=== PATIENT | female | born 1955 | race Caucasian/White ===

== ENCOUNTER → 2017-07-21 12:18 | Outpatient (CLI) | payer BC, SELFPAY ==
[2017-07-21 14:08] LABS: Alanine Aminotransferase 18 U/L (12-78); Albumin Level 4.1 gm/dL (3.4-5.0); Albumin/Globulin Ratio 1.2 (1.1-1.8); Alkaline Phosphatase 82 U/L (46-116); Anion Gap 12.9 mEq/L (5-15); Aspartate Amino Transferase 26 U/L (15-37); Bilirubin,Total 0.3 mg/dL (0.2-1.0); Blood Urea Nitrogen 9 mg/dL (7-18); Calcium 9.8 mg/dL (8.5-10.1); Carbon Dioxide 28 mmol/L (21.0-32.0); Chloride 104 mmol/L (98-107); Creatinine,Serum 0.93 mg/dL (0.55-1.02); Estimated Glomerular Filt Rate 61 ml/min (>60); GFR (African American) 73 ML/MIN (>60); Globulin 3.4 gm/dl (1.3-3.2); Glucose 98 mg/dL (74-106); Potassium 4.9 mmoL/L (3.5-5.1); Sodium 140 mmol/L (136-145); Total Protein,Serum 7.5 gm/dL (6.4-8.2)
[2017-07-22 11:04] LABS: Folate 9.8 ng/mL (>3.0); Vitamin B12 >2000 pg/mL (232-1245); Vitamin D 25 Hydroxy 37.1 ng/mL (30.0-100.0)
[2017-07-26 06:02] LABS: Vitamin B6 6.3 ug/L (2.0-32.8)
== END ==
PROVIDERS: Visit Provider Psychiatry & Neurology Neurology
DX: G62.9 Polyneuropathy, unspecified (principal); I99.8 Other disorder of circulatory system; E53.8 Deficiency of other specified B group vitamins; E55.9 Vitamin D deficiency, unspecified
CPT/HCPCS: 36415; 80053; 82607; 82652; 82746; 84207

== ENCOUNTER → 2017-07-25 11:51 | Outpatient (CLI) | payer BC, SELFPAY ==
[2017-07-29 12:45] LABS: Calcium, Ionized 5.2 mg/dL (4.5-5.6)
== END ==
PROVIDERS: Visit Provider Psychiatry & Neurology Neurology
DX: G62.9 Polyneuropathy, unspecified (principal); E55.9 Vitamin D deficiency, unspecified
CPT/HCPCS: 36415; 82330

== ENCOUNTER → 2018-02-02 15:58 | Outpatient (CLI) | payer BC, SELFPAY ==
--- NOTE | 2018-02-02 16:02 | MM_ITS ---
MM Dig screening mamm BI w/CAD CAD Screening COMPARISON: Digital mammograms with CAD 01/24/2017 and 01/20/2016 INDICATION: There is a history of breast cancer in patient's maternal cousin diagnosed after menopause. TECHNIQUE: Standard CC and MLO images were obtained. R2 CAD reviewed. FINDINGS: Moderate diffuse scattered fiber glandular densities are seen throughout both breasts. The findings are bilateral and symmetrical. There is a small nodular density near the axillary tail right breast not deftly seen previously but almost surely representing a low-lying node. There are couple benign-appearing calcifications in each breast. There is no suspicious lesion and there are no suspicious microcalcifications. IMPRESSION: Moderate diffuse breast density with no suspicious lesion seen BI-RADS Category: 2 Benign Finding(s) RECOMMENDED FOLLOW-UP: 1YR - 1 YEAR FOLLOW-UP (A letter has been sent to the patient regarding results of the study.)
== END ==
PROVIDERS: PCP Family Medicine; Visit Provider Family Medicine
DX: Z12.31 Encounter for screening mammogram for malignant neoplasm of breast (principal)
CPT/HCPCS: 77067

== ENCOUNTER → 2018-04-25 13:55 | Outpatient (POV) | payer BC, SELFPAY | PROVIDERS: Visit Provider Dermatology | DX: Z00.00 Encounter for general adult medical examination without abnormal findings (principal) ==

== ENCOUNTER → 2019-02-23 16:03 | Outpatient (CLI) | payer MEDICARE, SELFPAY ==
--- NOTE | 2019-02-23 | MM_ITS ---
PROCEDURE: MM DIG SCREENING MAMM BI W/CAD CLINICAL INDICATION: ROUTINE SCREENING There is a history of breast cancer patient's maternal cousin diagnosed after menopause. COMPARISON: [facility] DIG MAMM-SCREEN NAILA from 01/20/2016 [facility] DIG MAMM-SCREEN NAILA W/CAD from 01/24/2017 [facility] MM Dig screening mamm BI w/CAD from 02/02/2018 TECHNIQUE: Standard CC and MLO images were obtained. R2 CAD reviewed. FINDINGS: Scattered fibroglandular densities are seen throughout both breast. There a benign-appearing calcification in each breast. There is an asymmetric density left breast which was seen previously but shows slightly irregular borders and highlighted by CAD on the CC view.. Recommend the patient return for spot compression views and ultrasound for additional evaluation there are no suspicious microcalcifications. IMPRESSION: Moderate diffuse breast density with possible change in asymmetric density left breast BI-RAD Category: 0 Need Additional Imaging Evaluation FOLLOW-UP: IMM Immediate Follow-up Recommended (A letter has been sent to the patient regarding results of the study.) Dictated by: Dr. Kartik Fernandes MD 02/25/2019 19:[address] Kartik Fernandes MD in [place] 02/25/2019 19:17
== END ==
PROVIDERS: PCP Nurse Practitioner; Visit Provider Nurse Practitioner
DX: Z12.31 Encounter for screening mammogram for malignant neoplasm of breast (principal)
CPT/HCPCS: 77067

== ENCOUNTER → 2019-03-15 14:52 | Outpatient (CLI) | payer MEDICARE, SELFPAY ==
--- NOTE | 2019-03-15 14:54 | MM_ITS ---
PROCEDURE: MM DIG MAMM DX UNILAT LT CAD CLINICAL INDICATION: ABNORMAL MAMM, LT BREAST NODULE COMPARISON: [facility] DIG MAMM-SCREEN NAILA W/CAD from 01/24/2017 [facility] MM Dig screening mamm BI w/CAD from 02/02/2018 MM DIG SCREENING MAMM BI W/CAD from 02/23/2019 TECHNIQUE: Compression MLO and CC views were obtained. FINDINGS: The possible asymmetric density seen on the previous study 02/23/2019 upper inner quadrant appears to press out on the additional spot compression views on the current study. Again noted is diffuse fibroglandular densities throughout the breast. This suggests that the previous image was a summation shadow. Recommended patient continue with yearly screening IMPRESSION: Essentially negative problem solving views BI-RAD Category: 1 Negative FOLLOW-UP: 1YR 1 Year Follow-up (A letter has been sent to the patient regarding results of the study.) Dictated by: Dr. Kartik Fernandes MD 03/22/2019 08:[address] Kartik Fernandes MD in [place] 03/22/2019 08:25
--- NOTE | 2019-03-15 15:18 | US_ITS ---
PROCEDURE: US BREAST LT COMPLETE CLINICAL INDICATION: Abnormal mammogram COMPARISON: MM DIG SCREENING MAMM BI W/CAD from 02/23/2019 MM DIG MAMM DX UNILAT LT CAD from 03/15/2019 FINDINGS: Ultrasound performed of the left breast shows no solid or cystic abnormalities. No abnormalities evident that would correspond to the area of concern on the screening mammogram. IMPRESSION: Negative left breast ultrasound. BI-RADS category 1: Negative Follow-up mammogram recommended in 1 year Dictated by: Ciaran Poon MD 03/22/2019 11:34 Electronically signed by Ciaran Poon MD in [place] 03/22/2019 11:34
== END ==
PROVIDERS: PCP Nurse Practitioner; Visit Provider Nurse Practitioner
DX: R92.8 Other abnormal and inconclusive findings on diagnostic imaging of breast (principal)
CPT/HCPCS: 76641; 77065

== ENCOUNTER → 2019-08-17 07:44 | Outpatient (CLI) | payer MEDICARE, SELFPAY ==
--- NOTE | 2019-08-17 07:45 | CA_ITS ---
APPROVED REPORT General Freight Agent: Francesca Mckinney RVT Laterality: Bilateral Study Quality: Good Indications: left carotid bruit Risk Factors Hyperlipidemia Smoking Doppler Spectral Velocity Analysis ECA (R) 96.90/10.30 cm/s ECA (L) 75.90/6.30 cm/s dICA (R) 113.20/35.20 cm/s dICA (L) 81.80/28.40 cm/s Don (R) 98.00/35.90 cm/s Don (L) 65.20/25.70 cm/s pICA (R) 125.00/26.90 cm/s pICA (L) 100.50/23.60 cm/s dCCA (R) 103.40/23.80 cm/s dCCA (L) 96.90/23.50 cm/s pCCA (R) 113.00/26.30 cm/s pCCA (L) 105.00/27.20 cm/s Vert (R) 107.90/25.00 cm/s Vert (L) 43.80/14.10 cm/s ICA/CCA 1.21 ICA/CCA 1.04 Findings Study suggests less than 20% stenosis of the bilateral internal cartoid arteries. Antegrade flow seen bilateral vertebral arteries. Conclusion No increased velocities to suggest hemodynamically significant stenosis in either internal carotid artery. Electronically signed by : Ciaran Poon MD 08/17/2019 14:41:14
== END ==
PROVIDERS: PCP Nurse Practitioner; Visit Provider Internal Medicine Cardiovascular Disease
DX: R09.89 Other specified symptoms and signs involving the circulatory and respiratory systems (principal)
CPT/HCPCS: 93880

== ENCOUNTER → 2019-08-17 08:07 | Outpatient (CLI) | payer SELFPAY ==
--- NOTE | 2019-08-17 08:08 | CT_ITS ---
PROCEDURE: CT HEART W CALCIUM SCORE CLINICAL HISTORY: eval for cad COMPARISON: No exams were available for comparison TECHNIQUE: Axial images obtained with sagittal and coronal reformats. All CT scans at the facility use one or more dose reduction, viz: automated exposure control, ma/kV adjustment per patient size (including targeted exams where dose is matched to indication, i.e. head), or iterative reconstruction technique. FINDINGS: Coronary artery calcium score is 45 indicating mild plaque burden with moderate cardiovascular disease risk. Incidental note is made of a small hiatal hernia. There are mild atelectatic or fibrotic changes in the left lung base and right middle lobe IMPRESSION: Mild plaque burden with moderate cardiovascular disease risk Dictated by: Ciaran Poon MD 08/17/2019 14:25 Electronically signed by Ciaran Poon MD in [place] 08/17/2019 14:25
== END ==
PROVIDERS: PCP Nurse Practitioner; Visit Provider Internal Medicine Cardiovascular Disease
DX: Z13.6 Encounter for screening for cardiovascular disorders (principal); I34.0 Nonrheumatic mitral (valve) insufficiency; E78.5 Hyperlipidemia, unspecified; Z91.89 Other specified personal risk factors, not elsewhere classified
CPT/HCPCS: 75571

== ENCOUNTER → 2019-11-26 12:14 | Outpatient (CLI) | payer MEDICARE, SELFPAY ==
[2019-11-26 13:02] LABS: Alanine Aminotransferase 18 U/L (12-78); Albumin Level 4.2 g/dl (3.5-5.0); Alkaline Phosphatase 87 U/L (38-126); Aspartate Amino Transferase 42 U/L (14-36); Bilirubin,Direct 0.2 mg/dl (0.0-0.4); Bilirubin,Indirect 0.2 mg/dL (0.0-0.9); Bilirubin,Total 0.4 mg/dl (0.2-1.3); Bilirubin,Unconjugated 0.3 mg/dL (0.0-1.1); Chol/HDL Ratio 2.1 (1-3.5); Cholesterol 144 mg/dl (140-200); HDL Cholesterol 68 mg/dl (40-60); Total Protein,Serum 6.9 g/dl (6.3-8.2); Triglycerides 181 mg/dl (30-150); VLDL Cholesterol 36 mg/dL (0-40)
[2019-11-26 13:15] LABS: Direct LDL Cholesterol 60.29 mg/dL (100-129)
== END ==
PROVIDERS: Visit Provider Internal Medicine
DX: E78.5 Hyperlipidemia, unspecified (principal)
CPT/HCPCS: 36415; 80061; 80076

== ENCOUNTER → 2019-12-12 09:58 | Outpatient (CLI) | payer MEDICARE, SELFPAY ==
--- NOTE | 2019-12-12 10:01 | US_ITS ---
PROCEDURE: MM DIG MAMM DX UNILAT RT CAD Digital Breast Tomosynthesis Included CLINICAL INDICATION: RIGHT BREAST PAIN COMPARISON: MG [facility]B DIG MAMM-SCREEN NAILA W/CAD from 01/24/2017 [facility] MM Dig screening mamm BI w/CAD from 02/02/2018 MG MM DIG SCREENING MAMM BI W/CAD from 02/23/2019 MG MM DIG MAMM DX UNILAT LT CAD from 03/15/2019 US US BREAST RT COMPLETE from 12/12/2019 TECHNIQUE: Standard images performed along with spot compression views and right breast ultrasound. Tomography also performed FINDINGS: Average fibroglandular tissue. There is an 8 mm nodular opacity in the inferior aspect of the right breast as seen on the tomograms but not redo duplicated on the spot views. There is an area of asymmetry in the central aspect of the right breast which is stable triangular-shaped measuring 6 mm. No malignant appearing microcalcifications. Right breast ultrasound: In the 6 o'clock region of the right breast corresponding to the area of patient's reported pain, there is a 9 mm lobulated nodule fairly well-circumscribed. This is hypoechoic but shows decreased through transmission of sound. The nodule is wider than tall. IMPRESSION: Suspicious nodule at 6 o'clock seen on the ultrasound possibly corresponding to the area of asymmetric density on the mammogram. Suggest ultrasound-guided aspiration. If this does not represent a cyst complex cyst then, mammotome biopsy or core biopsy could be performed at the same time. BI-RAD Category: 4 Suspicious Abnormality - Biopsy Considered FOLLOW-UP: BIO Biopsy Recommended (A letter has been sent to the patient regarding results of the study.) Dictated by: Ciaran Poon MD 12/17/2019 09:39 Ciaran Poon MD in [place] 12/17/2019 09:39
== END ==
PROVIDERS: PCP Nurse Practitioner; Visit Provider Nurse Practitioner
DX: N64.4 Mastodynia (principal)
CPT/HCPCS: 76641; 77061; 77065; G0279

== ENCOUNTER 2020-01-07 10:01 | Emergency (ER) | payer MEDICARE, SELFPAY ==
--- NOTE | 2020-01-07 10:08 | PC.NURSE ---
Lab notified of need for covid test, requested that more test be sent down
[2020-01-07 10:31] VITALS: BP 143/74; PULSE 77; RESP 20; TEMP 36.6; O2SAT 97; BMI 26.9
--- NOTE | 2020-01-07 10:33 | HMH.EDUTC ---
[facility] [place] Impression: Exposure to COVID-19 virus Disposition: Home, Self-Care Condition on Discharge: Good Instructions: Preventing the Spread of Coronavirus Discharge Instructions Additional Instructions: Drink plenty of fluids. Take tylenol or ibuprofen for pain or fever. Follow up with your regular doctor. GO TO THE ER FOR ANY WORSENING SYMPTOMS FOLLOW THE DIRECTIONS ON THE COVID-19 HAND OUT THAT WE GAVE YOU REGARDING SELF-ISOLATION UNTIL YOU KNOW YOUR COVID-19 RESULTS Prescriptions: Ondansetron [Zofran 4mg ODT] 4 mg PO Q8HP PRN #20 tab.rapdis PRN Reason: Nausea Transmission Status: Received by [facility] Referrals: Sammi Gómez APRN [Primary Care Provider] - Time of Disposition: 10:38 Medical Decision Making - Medical Records Medical records reviewed: No: I reviewed the patient's medical records. - Mark Inquiry Pt receiving controlled substance: No Vital Signs: 01/07/20 10:31 01/07/20 10:47 Temperature 97.9 F 97.9 F Temperature Source Oral Pulse Rate 77 Pulse Rate [Right Brachial] 77 Respiratory Rate 20 20 Blood Pressure 143/74 H Blood Pressure [Right Arm] 143/74 H Blood Pressure Mean [Right Arm] 97 Blood Pressure Source [Right Arm] Automatic Cuff Blood Pressure Position [Right Arm] Sitting 02 Sat by Pulse Oximetry 97 Oxygen Delivery Method Room Air [facility] [place] - General Stated complaint: covid exposure Time Seen by Provider: 01/07/20 10:33 - History of Present Illness Provider Complaint: She reports that she was exposed to Covid by being around some of her family about a week ago. She is having a mild sore throat and nasal congestion, but she thinks that she is having allergy symptoms instead of covid, but she wants to make sure. Onset (ago): hour(s) - Related Data Home Medications Medication Instructions Recorded Confirmed nabumetone 500 mg tablet 500 mg PO BID 06/06/17 08/20/19 cholecalciferol (vitamin D3) 125 5,000 unit PO DAILY cap 08/03/18 08/20/19 mcg (5,000 unit) capsule cyanocobalamin (vitamin B-12) 1,000 mcg PO DAILY tab 08/03/18 08/20/19 1,000 mcg tablet duloxetine 30 mg capsule,delayed 30 mg PO DAILY cap 08/03/18 08/20/19 release gabapentin 100 mg capsule 300 mg PO DIRECTED cap 08/09/19 08/20/19 omeprazole magnesium 20 mg 20 mg PO DAILY 08/09/19 08/20/19 tablet,delayed release Previous Rx's Medication Instructions Recorded aspirin 81 mg tablet,delayed 81 mg PO DAILY #30 tab 08/09/19 release rosuvastatin 20 mg tablet 20 mg PO DAILY #30 tab 09/13/19 Ondansetron [Zofran 4mg ODT] 4 mg PO Q8HP PRN #20 tab.rapdis 01/07/20 Allergies Allergy/AdvReac Type Severity Reaction Status Date / Time No Known Allergies Allergy Verified 09/13/19 11:21 [facility] History - Hepatitis A Screen Attestation statement:: This patient has been screened for Hepatitis A risk factors. 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
--- NOTE | 2020-01-07 10:35 | PC.NURSE ---
LAB AT BEDSIDE
[2020-01-07 10:47] VITALS: BP 143/74; PULSE 77; RESP 20; TEMP 36.6; O2SAT 97
== END 2020-01-07 10:54 | disposition home or self-care (01) ==
PROVIDERS: Emergency Provider Nurse Practitioner Family; PCP Nurse Practitioner
DX: Z20.828 Contact with and (suspected) exposure to other viral communicable diseases (principal); I10 Essential (primary) hypertension; E78.5 Hyperlipidemia, unspecified; K21.9 Gastro-esophageal reflux disease without esophagitis
CPT/HCPCS: G0463; 99201; U0003

== ENCOUNTER → 2020-01-08 12:15 | Outpatient (CLI) | payer MEDICARE, SELFPAY ==
--- NOTE | 2020-01-08 12:22 | US_ITS ---
PROCEDURE: US FNA BREAST CLINICAL INDICATION: ABN USTRASOUND RT BREAST Suspicious right breast nodule COMPARISON: MG MM DIG MAMM DX UNILAT RT CAD from 12/12/2019 US US BREAST RT COMPLETE from 12/12/2019 FINDINGS: Technique: Following obtaining informed consent under aseptic conditions and local anesthesia with 1 percent buffered lidocaine and following time-out procedure, FNA and core biopsy was performed using standard technique. Pre biopsy images once again confirms the suspicious nodule at the 6 o'clock region of the right breast near the nipple. FNA was performed of this nodule but nodule did not aspirate. Therefore, core biopsy was performed. Three cores were obtained with 18 gauge biopsy needle. Potato chance the patient tolerated the procedure well without evidence of immediate complication and left radiology suite in stable condition. Cytology: Negative for malignant cells. Pathology: Non proliferative fibrocystic change with dense stromal fibrosis, negative for malignancy. IMPRESSION: Uneventful ultrasound-guided fine needle aspiration and core biopsy of suspicious right breast nodule. Cytology and pathology was negative for malignancy. Recommend six-month mammographic and sonographic follow-up to confirm stability. Dictated by: Ciaran Poon MD 01/14/2020 08:57 Ciaran Poon MD in [place] 01/14/2020 08:57
== END ==
PROVIDERS: PCP Nurse Practitioner; Visit Provider Family Medicine
DX: R92.8 Other abnormal and inconclusive findings on diagnostic imaging of breast (principal)
CPT/HCPCS: 19083; 10005; 76942; 88173; 88305

== ENCOUNTER → 2020-03-11 11:31 | Outpatient (CLI) | payer MEDICARE, SELFPAY ==
[2020-03-11 13:58] LABS: Coronavirus 19 IgG Antibody Negative (Negative); Coronavirus 19 IgM Antibody Negative (Negative)
== END ==
PROVIDERS: Visit Provider Surgery
DX: Z01.818 Encounter for other preprocedural examination (principal); Z03.818 Encounter for observation for suspected exposure to other biological agents ruled out; Z12.11 Encounter for screening for malignant neoplasm of colon; Z86.010 Personal history of colon polyps
CPT/HCPCS: 36415; 86328

== ENCOUNTER 2020-03-13 08:48 | Day surgery (SDC) | payer MEDICARE, SELFPAY ==
[2020-03-11 13:59] VITALS: BMI 25.7
[2020-03-13 08:58] VITALS: BP 145/67; PULSE 74; RESP 16; TEMP 36.2; O2SAT 97
--- NOTE | 2020-03-13 09:02 | P.PN_ITS ---
[facility] Anesthesia Checklist - Patient Identification Patient Identification: Arm Band, Verbal (Name & ) - Structural Data Admitted From: Home Planned Operative Procedure/s: colon Consent for Planned Operative Procedure(s) Verified: Yes Verified Documents: History and Physical - NPO Status Verified Time NPO: 00:00 - Additional verifications Patient : No Anesthesia Reactions: No Hx Blood Transfusions: No Blood Transfusion Reaction: No Cephalosporin Allergy: No Previous Colonoscopy: Yes - Cardiovascular Assessment Heart Sounds: S1 & S2 Pulse Strength: Baseline Pulse Rhythm: Regular Peripheral Edema: No - Airway Assessment C-Spine Mobility Assessed: Yes TMJ Mobility Assessed: Yes Dentition: Partials - Neurological Assessment Level of Consciousness: Awake, Alert, Appropriate Hx Seizures: No Numbness or tingling in extremities: No - Anesthesia Plan Anesthesia Risk discussed: Yes Anesthesia Plan: Verified ASA Class: III Anesthesia Type: MAC [facility] History I have reviewed the patient's past medical history: Yes Medical History: Reports:: Cancer (breast), Gastroesophageal Reflux Disease(GERD), Hyperlipidemia, Hypertension Denies:: Diabetes Mellitus Type 1, Diabetes Mellitus Type 2, Internal Pacemaker, MRSA, Seizures *Have you ever received a pneumonia vaccine?: Yes *Have you received a flu vaccine this season?: Yes Other Medical History: Reports: Arthritis Anesthesia experience/problems:: none Other Surgeries: Yes: Colonoscopy, Tubal Ligation. 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
[2020-03-13 09:14] VITALS: O2SAT 98
[2020-03-13 10:01] VITALS: BP 107/66; PULSE 70; RESP 18; TEMP 36.2; O2SAT 98
--- NOTE | 2020-03-13 10:05 | HMH.SCOPE ---
- Procedure: Date: 03/13/20 Patient Date of :: 1955 Procedure Performed:: Colonoscopy with polypectomy Indications:: History of colon polyps Performing Provider:: Biju Brothers MD Referring Provider:: . Sedation:: Monitored anesthesia care Procedure:: After informed consent was obtained the patient was taken to the endoscopy suite. Sedation ensued after the patient was transferred to the left lateral decubitus position. Pulse, blood pressure, and oxygen saturation were monitored throughout the procedure. Digital rectal exam revealed no significant abnormality. The colonoscope was placed in position. The entire colon was evaluated. The colonoscope was carefully removed and the patient was transferred to recovery in stable condition. Please see findings and specimens below for detail. Findings:: Bowel preparation poor Sigmoid diverticulosis Significant colonic spasticity Fairly significant sigmoid tortuosity Polyps (see specimens) Specimens:: Right colon polyp Complex lobulated large polyp at 20 cm (snare) Recommendations:: Timing of repeat colonoscopy is pending pathology but will likely be between 3-6 months secondary to poor bowel preparation, size/nature of polyp at 20 cm, spasticity, and tortuosity. Extended bowel preparation will be required. Complications:: Poor bowel preparation Estimated blood obtained (mL): 1
[2020-03-13 10:11] VITALS: BP 130/67; PULSE 71; RESP 18; TEMP 36.2; O2SAT 96
[2020-03-13 10:21] VITALS: BP 139/82; PULSE 67; RESP 18; TEMP 36.2; O2SAT 97
[2020-03-13 10:35] VITALS: BP 144/82; PULSE 62; RESP 18; TEMP 36.2; O2SAT 97
== END 2020-03-13 10:35 | disposition home or self-care (01) ==
LOC: OUTP 08:49
PROVIDERS: PCP Nurse Practitioner; Visit Provider Surgery
PROC: 0DJD8ZZ Inspection of Lower Intestinal Tract, Via Natural or Artificial Opening Endoscopic (ICD-10-PCS; principal; 2020-03-13 09:30)
DX: Z12.11 Encounter for screening for malignant neoplasm of colon (principal); Z86.010 Personal history of colon polyps; K57.30 Diverticulosis of large intestine without perforation or abscess without bleeding; K56.2 Volvulus; K63.5 Polyp of colon; Z85.3 Personal history of malignant neoplasm of breast; K21.9 Gastro-esophageal reflux disease without esophagitis; E78.5 Hyperlipidemia, unspecified; I10 Essential (primary) hypertension; M19.90 Unspecified osteoarthritis, unspecified site; Z72.0 Tobacco use; Z79.899 Other long term (current) drug therapy
CPT/HCPCS: 45380; 45385; 88305

== ENCOUNTER → 2020-06-24 10:28 | Outpatient (CLI) | payer MEDICARE, SELFPAY ==
[2020-06-24 12:18] LABS: Coronavirus 19 IgG Antibody Negative (Negative); Coronavirus 19 IgM Antibody Negative (Negative)
== END ==
PROVIDERS: Visit Provider Surgery
DX: Z01.818 Encounter for other preprocedural examination (principal); Z20.822 Contact with and (suspected) exposure to COVID-19; Z12.11 Encounter for screening for malignant neoplasm of colon
CPT/HCPCS: 36415; 86328

== ENCOUNTER 2020-06-26 06:23 | Day surgery (SDC) | payer MEDICARE, SELFPAY ==
[2020-06-26] VITALS (8 sets, daily range): BP systolic 75–139; BP diastolic 43–82; PULSE 59–81; RESP 12–20; TEMP 36.2–36.3; O2SAT 93–99; BMI 25.7
--- NOTE | 2020-06-26 09:43 | HMH.SCOPE ---
- Procedure: Date: 06/26/20 Patient Date of :: 1955 Procedure Performed:: Colonoscopy with polypectomy Indications:: History of colon polyps Short-term repeat evaluation secondary to poor bowel preparation on recent colonoscopy Performing Provider:: Biju Brothers MD Referring Provider:: . Sedation:: Monitored anesthesia care Procedure:: After informed consent was obtained the patient was taken to the endoscopy suite. Sedation ensued after the patient was transferred to the left lateral decubitus position. Pulse, blood pressure, and oxygen saturation were monitored throughout the procedure. Digital rectal exam revealed no significant abnormality. The colonoscope was placed in position. The entire colon was evaluated. The colonoscope was carefully removed and the patient was transferred to recovery in stable condition. Please see findings and specimens below for detail. Findings:: Bowel preparation moderate to poor (despite extended bowel preparation) Bowel preparation improved versus prior evaluation Severe lack of relaxation Complex polyps (see specimens) Specimens:: Complex 9 mm sessile right colon polyp and adjacent polyp (snare) Lobulated complex polyp at 12 cm (snare) Recommendations:: Follow-up pathology Gastroenterology consultation for chronic abdominal pain/chronic constipation (possible irritable bowel syndrome Fairly short-term repeat colonoscopy secondary to persistent limited bowel preparation, lack of relaxation, and multiple complex polyps. Repeat colonoscopy will be deferred to the gastroenterology service. Complications:: No immediate with the exception of persistent limitations in bowel preparation. Estimated blood obtained (mL): 1
--- NOTE | 2020-06-26 15:29 | P.PN_ITS ---
[facility] Anesthesia Checklist - Patient Identification Patient Identification: Arm Band - Structural Data Admitted From: Home Planned Operative Procedure/s: Colonoscopy Consent for Planned Operative Procedure(s) Verified: Yes Verified Documents: Surgical Consent - NPO Status Verified Time NPO: 00:00 - Additional verifications Anesthesia Reactions: No Hx Blood Transfusions: No Blood Transfusion Reaction: No - Airway Assessment C-Spine Mobility Assessed: Yes TMJ Mobility Assessed: Yes Dentition: Partials - Neurological Assessment Level of Consciousness: Awake, Alert - Anesthesia Plan Anesthesia Risk discussed: Yes Anesthesia Plan: Verified ASA Class: III Anesthesia Type: MAC [facility] History Medical History: Reports:: Gastroesophageal Reflux Disease(GERD), Hyperlipidemia, Hypertension Denies:: Cancer, Diabetes Mellitus Type 1, Diabetes Mellitus Type 2, Internal Pacemaker, MRSA, Seizures *Have you ever received a pneumonia vaccine?: Yes *Have you received a flu vaccine this season?: Yes Other Medical History: Reports: Arthritis. Denies: Blood Transfusion Reaction Anesthesia experience/problems:: NAC Other Surgeries: Yes: Colonoscopy, Tubal Ligation. 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
--- NOTE | 2020-06-26 15:30 | HMH.ANESI ---
[facility] Anesthesia Record Part I Intake, IV Amount: 300 Estimated blood loss (mL): 0 Urine output (mL): 0 Blood Products used (#): none Blood Pressure: 125/82 SaO2: 99 Pulse Rate: 80 Respiratory Rate: 12 Temperature: 97.4 F Patient is:: Awake, Drowsy, Stable Stable to PACU at:: 09:42
== END 2020-06-26 10:33 | disposition home or self-care (01) ==
LOC: OUTP 06:25
PROVIDERS: PCP Family Medicine; Visit Provider Surgery
PROC: 0DJD8ZZ Inspection of Lower Intestinal Tract, Via Natural or Artificial Opening Endoscopic (ICD-10-PCS; CPT 45385; principal; 2020-06-26 07:30)
DX: Z12.11 Encounter for screening for malignant neoplasm of colon (principal); K63.5 Polyp of colon; K62.1 Rectal polyp; K58.9 Irritable bowel syndrome, unspecified; Z86.010 Personal history of colon polyps; I10 Essential (primary) hypertension; E78.5 Hyperlipidemia, unspecified; K21.9 Gastro-esophageal reflux disease without esophagitis; Z85.9 Personal history of malignant neoplasm, unspecified; M19.90 Unspecified osteoarthritis, unspecified site; Z72.0 Tobacco use; Z79.899 Other long term (current) drug therapy
CPT/HCPCS: 45385; 88305; J1610

== ENCOUNTER → 2020-06-30 13:49 | Outpatient (CLI) | payer MEDICARE, SELFPAY ==
--- NOTE | 2020-06-30 13:54 | MM_ITS ---
PROCEDURE: MM DIG MAMM BI DX W/CAD Digital Breast Tomosynthesis Included CLINICAL INDICATION: ABN MAMM, FOLLOW UP COMPARISON: MG [facility] MM Dig screening mamm BI w/CAD from 02/02/2018 MG MM DIG SCREENING MAMM BI W/CAD from 02/23/2019 US US BREAST LT COMPLETE from 03/15/2019 MG MM DIG MAMM DX UNILAT LT CAD from 03/15/2019 US US BREAST RT COMPLETE from 12/12/2019 MG MM DIG MAMM DX UNILAT RT CAD from 12/12/2019 US US BREAST RT COMPLETE from 06/30/2020 TECHNIQUE: Standard CC and MLO images and 3D Tomosynthesis was obtained. R2 CAD reviewed. FINDINGS: The breasts are composed of scattered fibroglandular tissue. Focal areas of asymmetric density in the left breast are again noted, demonstrate no significant interval change compared to prior study. Benign appearing calcifications are noted bilaterally. In the right breast, there is focal asymmetric density noted, noted on the prior study. Spot compression demonstrates a focal areas of asymmetric density at the site of previous cyst aspiration. Ultrasound of the focal hypoechoic lesion with mildly thickened margins are again noted at 6 o'clock position measuring up to 0.6 centimeters. This demonstrates no significant interval change in size compared to the prior study. IMPRESSION: Focal asymmetric ileal lesion noted in the ultrasound and diagnostic mammogram in the right breast at approximately 6 o'clock position. No significant interval change in size compared to the prior BI-RAD Category: 3 Probably Benign Finding Short Term Follow-up FOLLOW-UP: Ultrasound follow-up in 6 months recommended. (A letter has been sent to the patient regarding results of the study.) Dictated by: Abida Tejeda 07/03/2020 18:33 Abida Tejeda in [place] 07/03/2020 18:33
--- NOTE | 2020-06-30 13:55 | US_ITS ---
PROCEDURE: US BREAST RT COMPLETE CLINICAL INDICATION: ABN MAMM, FOLLOW UP COMPARISON: US US FNA BREAST from 01/08/2020 and December 12, 2019. FINDINGS: Focal hypoechoic lesion noted in the right breast at 6 o'clock position, measuring 0.6 x 0.5 centimeters, demonstrates no evidence of internal vascularity. No evidence of posterior acoustic shadowing. No other focal lesions are noted. Axillary lymph nodes demonstrate normal morphology measuring up to 1.6 centimeters. IMPRESSION: Hypoechoic lesion in the right breast at 6 o'clock position measuring 0.6 centimeters, demonstrate no significant interval change. Follow-up ultrasound in 6 months is recommended for size stability. Dictated by: Abida Tejeda 07/03/2020 18:34 Abida Tejeda in [place] 07/03/2020 18:34
== END ==
PROVIDERS: PCP Family Medicine; Visit Provider Family Medicine
DX: R92.8 Other abnormal and inconclusive findings on diagnostic imaging of breast (principal); Z09 Encounter for follow-up examination after completed treatment for conditions other than malignant neoplasm
CPT/HCPCS: 76641; 77062; 77066; G0279

== ENCOUNTER → 2020-11-24 13:24 | Outpatient (POV) | payer MEDICARE, SELFPAY | PROVIDERS: Visit Provider Nurse Practitioner Family | DX: Z00.00 Encounter for general adult medical examination without abnormal findings (principal) ==

== ENCOUNTER → 2021-01-01 12:51 | Outpatient (CLI) | payer MEDICARE, SELFPAY ==
--- NOTE | 2021-01-01 12:54 | US_ITS ---
PROCEDURE: US BREAST RT COMPLETE CLINICAL INDICATION: ABN MAMM F/U Thank you COMPARISON: US US BREAST RT COMPLETE from 12/12/2019 US US FNA BREAST from 01/08/2020 US US BREAST RT COMPLETE from 06/30/2020 MG MM DIG MAMM BI DX W/CAD from 06/30/2020 FINDINGS: There is a 7 x 4 mm hypoechoic nodule in the 6 o'clock region of the right breast. FNA and core biopsy was previously performed of this lesion showing benign findings. This is similar in appearance compared to 06/30/2020. There is some posterior acoustical shadowing as before. The nodule is well-circumscribed wider than tall. No other abnormalities apparent. IMPRESSION: Stable hypoechoic nodule at 6 o'clock. Benign findings. Patient is due for bilateral mammogram. Suggest correlation with mammography. Dictated by: Ciaran Poon MD 01/07/2021 13:59 Ciaran Poon MD in [place] 01/07/2021 13:59
== END ==
PROVIDERS: PCP Family Medicine; Visit Provider Nurse Practitioner Family
DX: R92.8 Other abnormal and inconclusive findings on diagnostic imaging of breast (principal); Z09 Encounter for follow-up examination after completed treatment for conditions other than malignant neoplasm
CPT/HCPCS: 76641

== ENCOUNTER → 2021-01-28 13:59 | Outpatient (CLI) | payer MEDICARE, SELFPAY ==
--- NOTE | 2021-01-28 14:02 | MM_ITS ---
PROCEDURE: MM DIG MAMM BI DX W/CAD Digital Breast Tomosynthesis Included Right breast ultrasound complete CLINICAL INDICATION: ABN MAMM COMPARISON: MG DMSB DIGITAL MAMM-SCREEN BILATERAL from 01/13/2012 MG DMSB DIG MAMM-SCREEN NAILA from 01/20/2016 MG DMSB DIG MAMM-SCREEN NAILA W/CAD from 01/24/2017 MG SCBI MM Dig screening mamm BI w/CAD from 02/02/2018 MG MM DIG SCREENING MAMM BI W/CAD from 02/23/2019 MG MM DIG MAMM DX UNILAT LT CAD from 03/15/2019 US US BREAST LT COMPLETE from 03/15/2019 MG MM DIG MAMM DX UNILAT RT CAD from 12/12/2019 US US BREAST RT COMPLETE from 12/12/2019 US US FNA BREAST from 01/08/2020 US US BREAST RT COMPLETE from 06/30/2020 MG MM DIG MAMM BI DX W/CAD from 06/30/2020 US US BREAST RT COMPLETE from 01/01/2021 TECHNIQUE: Standard CC and MLO images and 3D Tomosynthesis was obtained. R2 CAD reviewed. FINDINGS: There are scattered areas of fibroglandular density no malignant appearing mass or malignant-appearing microcalcification. Scattered fibroglandular elements. No skin thickening or architectural distortion. Asymmetry once again noted in the inferior aspect of the right breast not significantly changed. Benign-appearing nodular opacity measuring approximately 6 mm in the retroareolar region on the left medially. Right breast ultrasound: 7 x 4 mm hypoechoic nodule at 6 o'clock as previously described and that was biopsied previously is unchanged. No suspicious lesions apparent IMPRESSION: Benign findings on the right. Additional imaging suggested on the left. Recommend left-sided ultrasound for the 6 mm nodule in the medial retroareolar region. BI-RAD Category: 0 Need Additional Imaging Evaluation FOLLOW-UP: Left breast ultrasound (A letter has been sent to the patient regarding results of the study.) Dictated by: Ciaran Poon MD 02/09/2021 10:28 Ciaran Poon MD in [place] 02/09/2021 10:28
== END ==
PROVIDERS: PCP Family Medicine; Visit Provider Family Medicine
DX: R92.8 Other abnormal and inconclusive findings on diagnostic imaging of breast (principal)
CPT/HCPCS: 77062; 77066; G0279

== ENCOUNTER → 2022-04-09 08:25 | Outpatient (CLI) | payer MEDICARE, SELFPAY ==
--- NOTE | 2022-04-09 08:29 | MM_ITS ---
PROCEDURE INFORMATION: Exam: MG Bilateral Screening 3D Mammography Exam date and time: 04/09/2022 8:26 AM Age: 66 years old Clinical indication: Screening. A maternal cousin had breast cancer. TECHNIQUE: Imaging protocol: Bilateral Screening tomosynthesis and 2D mammography including computer-aided detection (CAD) when performed. COMPARISON: 1. MG MM DIG MAMM BI DX W/CAD 01/28/2021 2:01 PM 2. MG MM DIG MAMM BI DX W/CAD 06/30/2020 1:57 PM 3. MG MM DIG MAMM DX UNILAT RT CAD 12/12/2019 11:11 AM 4. MG MM DIG MAMM DX UNILAT LT CAD 03/15/2019 3:04 PM FINDINGS: MAMMOGRAPHY: Breast composition: There are scattered areas of fibroglandular density. Mass: No suspicious mass. Architectural distortion: None. Calcifications: No suspicious calcifications. Asymmetric density: No developing asymmetry. Skin thickening: None. Axillary adenopathy: None. IMPRESSION: No mammographic evidence of malignancy. Annual screening is recommended unless otherwise clinically indicated. ASSESSMENT: BI-RADS Category 1: Negative
[2022-04-09 09:35] LABS: Basophils # 0.2 K/mm3 (0-0.2); Basophils % 2.3 % (0.1-2.0); Eosinophils # 0.3 K/mm3 (0.0-0.4); Eosinophils % 4.9 % (0.1-12.0); Hematocrit 44.7 % (37.0-47.0); Hemoglobin 14.2 g/dL (12.2-16.2); Lymphocytes % 31.2 % (10-50); Mean Corpuscular HGB Conc 31.7 g/dL (31.8-35.4); Mean Corpuscular Hemoglobin 30.7 pg (27.0-31.2); Mean Platelet Volume 9.7 fl (7.4-10.4); Monocytes # 0.5 K/mm3 (0.1-1.0); Neutrophils # 3.5 K/mm3 (1.8-7.8); Neutrophils % 54.5 % (37.0-80.0); Platelet Count 238 K/mm3 (142-424); Red Blood Count 4.61 M/mm3 (4.20-5.40); Red Cell Distribution Width 12.8 % (11.5-17.5); White Blood Count 6.4 K/mm3 (4.8-10.8)
[2022-04-09 10:05] LABS: Chloride 105 mmol/L (98-107); Potassium 4.5 mmoL/L (3.5-5.1); Sodium 140 mmol/L (136-145)
[2022-04-09 10:08] LABS: Alanine Aminotransferase 14 U/L (12-78); Albumin Level 4.4 g/dl (3.5-5.0); Albumin/Globulin Ratio 1.7 (1.1-1.8); Alkaline Phosphatase 68 U/L (38-126); Anion Gap 10.5 mEq/L (5-15); Aspartate Amino Transferase 30 U/L (14-36); Bilirubin,Total 0.5 mg/dl (0.2-1.3); Blood Urea Nitrogen 17 mg/dl (7-17); Calcium 9.4 mg/dl (8.4-10.2); Carbon Dioxide 29 mmol/L (22.0-30.0); Cholesterol 163 mg/dl (140-200); Estimated Glomerular Filt Rate 71 ml/min (>60); GFR (African American) 86 ML/MIN (>60); Globulin 2.6 g/dL (1.3-3.2); Glucose 98 mg/dl (74-100)
== END ==
PROVIDERS: PCP Nurse Practitioner Family; Visit Provider Nurse Practitioner Obstetrics & Gynecology
DX: Z12.31 Encounter for screening mammogram for malignant neoplasm of breast (principal); Z01.419 Encounter for gynecological examination (general) (routine) without abnormal findings; R87.612 Low grade squamous intraepithelial lesion on cytologic smear of cervix (LGSIL); I25.10 Atherosclerotic heart disease of native coronary artery without angina pectoris
CPT/HCPCS: 36415; 77063; 77067; 80053; 82465; 85025

== ENCOUNTER → 2022-04-23 08:58 | Outpatient (CLI) | payer MEDICARE, SELFPAY ==
--- NOTE | 2022-04-23 09:02 | XR_ITS ---
FINAL REPORT TECHNIQUE: Bone densitometry calculations of the lumbar spine and left hip were obtained. CLINICAL HISTORY: . post menopausal FINDINGS: Using L1-4, the bone mineral density of the spine is 1.078 g/cm2, corresponding to T-score of 0.3. Using the left hip, the bone mineral density of the femoral neck is 0.655 g/cm2, corresponding to a T-score of -1.5. FRAX 10 year fracture risk is 14 for a hip fracture and 3.7 for a major osteoporotic fracture. NOTE: T-score: Standard deviation compared with peak bone mass of young adult mean. *Following the recommendations of the International Society of Bone densitometry, classification of hip BMD is based on the lower of two T-scores; total hip or femoral neck. IMPRESSION: Normal bone mineral density of the lumbar spine. Osteopenia of the left hip. Reviewed, Interpreted and Dictated by Catrina Whyte MD Transcribed by Samira Coughlin Authenticated and [facility]
== END ==
PROVIDERS: PCP Nurse Practitioner Family; Visit Provider Nurse Practitioner Family
DX: Z78.0 Asymptomatic menopausal state (principal)
CPT/HCPCS: 77080

== ENCOUNTER 2022-04-28 15:36 | Emergency (ER) | payer MEDICARE, SELFPAY ==
--- NOTE | 2022-04-28 15:37 | XR_ITS ---
FINAL REPORT CLINICAL HISTORY: chest pain FINDINGS: Two views of the chest show linear density in the left lower lobe compatible with atelectasis or scar. The right lung is clear. Pulmonary vascularity is normal. Heart and mediastinum are unremarkable. No pleural effusion is present. IMPRESSION: Left lower lobe atelectasis or scar. Reviewed, Interpreted and Dictated by Kristen Kim MD Transcribed by Tegan Boswell Authenticated and . [facility]
[2022-04-28 15:40] VITALS: BP 170/70; PULSE 90; RESP 18; TEMP 36.5; O2SAT 100; BMI 28.1
--- NOTE | 2022-04-28 15:41 | ECG_ITS ---
APPROVED REPORT Exam: Resting ECG HR:87 bpm ECG Measurements Heart Rate 87 AXES MT 170 P 56 QRSd 92 QRS 25 QT 336 T 66 QTc 381 Conclusion SINUS RHYTHM NONSPECIFIC ST & T-WAVE ABNORMALITY BORDERLINE ECG UNCONFIRMED REPORT Electronically signed by : Edwin Lujan MD 04/29/2022 14:21:38
--- NOTE | 2022-04-28 15:43 | PC.NURSE ---
DR WYNN AT BEDSIDE
--- NOTE | 2022-04-28 15:49 | PC.NURSE ---
PT TO XR
--- NOTE | 2022-04-28 15:51 | HMH.EDGENADL ---
Discharge Plan Disposition Patient Disposition: Home, Self-Care Condition: Good Prescriptions Prescriptions: New bisoprolol fumarate 10 mg tablet 10 mg PO DAILY Qty: 30 0RF No Action gabapentin 300 mg capsule 300 mg PO DAILY nabumetone 500 mg tablet 500 mg PO BID cholecalciferol (vitamin D3) 5,000 unit capsule 5,000 unit PO DAILY cyanocobalamin (vitamin B-12) [Vitamin B-12] 1,000 mcg tablet 1,000 mcg PO DAILY duloxetine 30 mg capsule,delayed release(DR/EC) 30 mg PO DAILY Prilosec OTC 20 mg tablet,delayed release (DR/EC) 20 mg PO DAILY aspirin 81 MG tablet,delayed release (DR/EC) 81 mg PO DAILY rosuvastatin 20 MG tablet 20 mg PO DAILY Referrals Follow up/Referrals: Josee Chaney MD [Primary Care Provider] - See instructions Vince Quinones MD [Staff Physician] - See instructions Activity Restrictions/Add. Instructions Additional Instructions/Restrictions: You were evaluated in the emergency department today. Please follow-up with Dr. Quinones tomorrow at 11 AM. Follow-up with your primary care provider over the next 48 hours. supervisor [employer] your prescription for bisoprolol and take it as prescribed. Return to the emergency department for any new or worsening symptoms. Clinical Impressions Clinical Impression: Chest pain Qualifiers: Chest pain type: unspecified Qualified Code(s): R07.9 - Chest pain, unspecified Instructions Patient Instructions: DI for Angina, DI for Atypical Chest Pain Discharge ED Provider: Izabel Lam General Adult HPI General Chief complaint: Chest Pain Stated complaint: CP Time Seen by Provider: 04/28/22 15:38 Mode of Arrival: Ambulatory Source of Information: Patient Limitations: No Limitations Description of Symptoms (Recalled from ER Triage Doc. by RN): PT STATES SHE WOKE ABOUT 0100 THIS AM WITH CHEST PAIN AND JAW PAIN. DENIES PAIN AT THIS TIME. History of Present Illness HPI narrative: This patient is a 66-year-old female with a history of CAD, hypertension, and hyperlipidemia presenting to the emergency department for evaluation with concern for substernal chest pain radiating to both jaws that woke her up from sleep around 1:00 this morning. She states that it was severe, constant, and a pressure. She took aspirin with improvement in her symptoms. She states that it is now very mild. She denies any other concerns at this time. She denies experiencing anything like this in the past. She denies any recent fever, chills, cough, congestion, abdominal pain, nausea, vomiting, changes bowel movements, rashes, or swelling. She does note diaphoresis when she was experiencing severe chest pain. She was evaluated in outpatient clinic today, where she was sent here for further evaluation given abnormal EKG. Related Data Home Medications Medication Instructions Recorded Confirmed nabumetone 500 mg tablet 500 mg PO BID Pain 06/06/17 04/28/22 cholecalciferol (vitamin D3) 125 5,000 unit PO DAILY Supplement 08/03/18 04/28/22 mcg (5,000 unit) capsule cyanocobalamin (vitamin B-12) 1,000 mcg PO DAILY Supplement 08/03/18 04/28/22 1,000 mcg tablet (Vitamin B-12) duloxetine 30 mg capsule,delayed 30 mg PO DAILY Pain 08/03/18 04/28/22 release omeprazole magnesium 20 mg 20 mg PO DAILY GERD 08/09/19 04/28/22 tablet,delayed release (Prilosec OTC) aspirin 81 mg tablet,delayed 81 mg PO DAILY Supplement 03/11/20 04/28/22 release rosuvastatin 20 mg tablet 20 mg PO DAILY Cholesterol 03/11/20 04/28/22 gabapentin 300 mg capsule 300 mg PO DAILY Pain 08/19/20 04/28/22 Previous Rx's Medication Instructions Recorded bisoprolol fumarate 10 mg tablet 10 mg PO DAILY #30 tabs 04/28/22 Allergies Allergy/AdvReac Type Severity Reaction Status Date / Time No Known Allergies Allergy Verified 03/02/22 10:02 [facility] Disclaimer: The information contained in this section may have been updated after the patient was seen, as
[2022-04-28 15:55] VITALS: BP 149/71; PULSE 81; RESP 18; O2SAT 98
--- NOTE | 2022-04-28 15:55 | PC.NURSE ---
PT RETURNED FROM XR
[2022-04-28 16:00] VITALS: BP 161/79; PULSE 80; RESP 17; O2SAT 97
[2022-04-28 16:22] LABS: Chloride 106 mmol/L (98-107); Potassium 4.2 mmoL/L (3.5-5.1); Sodium 139 mmol/L (136-145)
[2022-04-28 16:24] LABS: Blood Urea Nitrogen 16 mg/dl (7-17); Creatinine Clearance Estimated 57 mL/min (50-200); Estimated Glomerular Filt Rate 55 ml/min (>60); GFR (African American) 67 ML/MIN (>60)
[2022-04-28 16:25] LABS: Alanine Aminotransferase 14 U/L (12-78); Albumin Level 4.2 g/dl (3.5-5.0); Alkaline Phosphatase 73 U/L (38-126); Anion Gap 9.2 mEq/L (5-15); Aspartate Amino Transferase 30 U/L (14-36); Bilirubin,Direct 0.3 mg/dl (0.0-0.4); Bilirubin,Indirect 0.1 mg/dL (0.0-0.9); Bilirubin,Total 0.4 mg/dl (0.2-1.3); Bilirubin,Unconjugated 0.1 mg/dL (0.0-1.1); Calcium 9.3 mg/dl (8.4-10.2); Carbon Dioxide 28 mmol/L (22.0-30.0); Glucose 124 mg/dl (74-100)
--- NOTE | 2022-04-28 16:26 | PC.NURSE ---
contacted lab to check on status of lab results. States cbc machine is down and they working on it, states approx 3-5 minutes on bmp and approx 12 minutes on troponin updated ER
[2022-04-28 16:39] LABS: Troponin I < 0.01 ng/ml (0.00-0.034)
--- NOTE | 2022-04-28 17:11 | PC.NURSE ---
Rounded on patient and family member and explained plan of care, three hours troponin test and continuing cardiac monitoring
[2022-04-28 17:13] LABS: Basophils # 0.1 K/mm3 (0-0.2); Basophils % 1.5 % (0.1-2.0); Eosinophils # 0.3 K/mm3 (0.0-0.4); Eosinophils % 3.5 % (0.1-12.0); Hematocrit 41.8 % (37.0-47.0); Hemoglobin 13.6 g/dL (12.2-16.2); Lymphocytes # 3.1 K/mm3 (0.7-4.5); Lymphocytes % 38.4 % (10-50); Mean Corpuscular HGB Conc 32.5 g/dL (31.8-35.4); Mean Corpuscular Hemoglobin 30.4 pg (27.0-31.2); Mean Corpuscular Volume 93.5 fl (81-99); Mean Platelet Volume 10.8 fl (7.4-10.4); Monocytes # 0.6 K/mm3 (0.1-1.0); Monocytes % 7.5 % (1.7-9.3); Platelet Count 200 K/mm3 (142-424); Red Blood Count 4.47 M/mm3 (4.20-5.40); Red Cell Distribution Width 13.1 % (11.5-17.5); White Blood Count 8.1 K/mm3 (4.8-10.8)
--- NOTE | 2022-04-28 17:20 | PC.NURSE ---
3706 DR. WYNN SPEAKING WITH PT AND FAMILY
--- NOTE | 2022-04-28 17:25 | PC.NURSE ---
DR. ESPINOZA PAGED AT THIS TIME
--- NOTE | 2022-04-28 17:28 | PC.NURSE ---
hoisting engine operator paged dr. dunlap per EMILY PRECIADO request, hoisting engine operator states had to leave a message for him.
--- NOTE | 2022-04-28 17:47 | PC.NURSE ---
EMILY PRECIADO speaking with dr. dunlap
--- NOTE | 2022-04-28 17:48 | PC.NURSE ---
DR. WYNN SPEAKING WITH DR. ESPINOZA
--- NOTE | 2022-04-28 18:46 | PC.NURSE ---
B/P 144/[address] WYNN NOTIFIED. CONTINUE WITH BISOPROLOL 10MG PO
--- NOTE | 2022-04-28 18:55 | PC.NURSE ---
ROUNDED ON PT, FAMILY AT BEDSIDE. UPDATED ON POC. NO NEEDS AT THIS TIME
[2022-04-28 19:00] VITALS: BP 152/77; PULSE 66; RESP 14; O2SAT 97
[2022-04-28 19:27] LABS: Troponin I < 0.01 ng/ml (0.00-0.034)
[2022-04-28 19:50] VITALS: BP 143/73; PULSE 64; RESP 18; TEMP 36.5; O2SAT 97
== END 2022-04-28 19:52 | disposition home or self-care (01) ==
PROVIDERS: Emergency Provider Emergency Medicine; PCP Family Medicine
DX: R07.89 Other chest pain (principal); I10 Essential (primary) hypertension; I25.10 Atherosclerotic heart disease of native coronary artery without angina pectoris; E78.5 Hyperlipidemia, unspecified; K21.9 Gastro-esophageal reflux disease without esophagitis; F17.210 Nicotine dependence, cigarettes, uncomplicated
CPT/HCPCS: 36415; 71046; 80048; 80076; 84484; 85025; 93005; 99285

== ENCOUNTER → 2022-05-07 10:57 | Outpatient (CLI) | payer MEDICARE, SELFPAY ==
--- NOTE | 2022-05-07 | CA_ITS ---
APPROVED REPORT Exam: Pharmacologic Technologist: Flory Garcia, Ht: 5 ft 8 in Wt: 64 lbs BSA: 1.26 m2 HR: 58 bpm BP: 160/71 mmHg Rhythm: NSR, INF LAT STT SEGMENT ABNORMALITIES Medical History Medical History: HTN Medications: Aspirin,,,,, Gabapentin,,,,, Nabumetone,,,,, Prilosec,,,,, Vit D3,,,,, DulOXETINE,,,,, BisOPROLOL Fumarate,,,,, Vit B12,,,,, RoSUVASatin,,,,, Allergies: No known drug allergies Cardiac Risk Factors: HTN, Smoking Stress Test Details Test: LEXISCAN HR Resting HR: 57 bpm Max Heart Rate (APMHR): 152.961057 bpm Max HR Achieved: 90 bpm Target HR (85% APMHR): 129.434400 bpm % of APMHR: 59.21 Recovery HR: 76 bpm BP Resting BP: 160/71 mmHg Max BP: 160/71 mmHg Recovery BP: 150.0/68.0 mmHg ECG Resting ECG: NSR, INF LAT STT SEGMENT ABNORMALITIES Clinical Reason for Termination: Completed Protocol Exercise duration: 04:01 min Highest Stage Achieved: Exercise capacity: 1.0 METs Stress ECG Conclusion <1.[address] SEGMENT CHANGES NON-DIAGNOSTIC RATE RELATED LBBB NOTED Test Summary REST 22:16 . . 57 . 160/ 71 . . Stage 1 01:00 . . 81 . . . . Stage 2 01:00 . . 89 . 134/ 64 . . Stage 3 01:00 . . 87 . 137/ 63 . . Stage 4 01:00 . . 85 . 135/ 65 . . Stage 4 01:01 . . 86 . 135/ 65 . Stop exercise at 04:01 RECOVERY 01:00 . . 81 . . . . RECOVERY 02:00 . . 80 . 141/ 66 . . RECOVERY 03:00 . . 79 . 150/ 68 . . RECOVERY 04:00 . . 79 . 150/ 68 . . RECOVERY 04:59 . . 77 . 150/ 68 . . Electronically signed by : Jones Boyle MD 05/07/2022 15:23:33
--- NOTE | 2022-05-07 10:59 | CA_ITS ---
APPROVED REPORT EXAM: Comprehensive 2D, Doppler, and color-flow Echocardiogram Hoop Cutter: Jyotsna Ruby CRT Ht: 5 ft 4 in Wt: 150lbs BSA: 1.73 BP: 141/54 mmHg Indications: Chest Pain, Shortness of Breath, Fatigue, Hyperlipidemia, Hypertension/HDD 2D Dimensions LVOT 1.68 cm (M/F) 1.5-2.5 LA Volume 51.50 mL LA Volume Index 29.10 mL/m2 (M/F) 16-34 M-Mode Dimensions RVDd 2.50 cm (0.9-2.6) LA Diam 4.09 cm (1.9-4.0) LVDd 4.75 cm (3.5-5.7) Ao Diam 2.82 cm (2.0-3.7) LVDs 2.86 cm (3.5-5.7) IVSd 1.39 cm (0.6-1.1) PWd 0.64 cm (0.6-1.1) EF (Teich) 70.40% FS 39.80% EDV (Teich) 104.90 mL TAPSE 2.17 (<1.7) ESV (Teich) 31.10 mL LV Diastology E Decel Time 197.00 (160-240 msec) E/A Ratio 1.30 MED E' 9.70 (< 7 cm/sec) MED A' 10.50 cm/s E'/MED E' Ratio 11.39 (>14) LAT E' 7.60 (<10 cm/sec) LAT A' 9.00 cm/s E/LAT E' Ratio 14.54 (>14) Aortic Valve AO Peak GR. 6.40 mmHg Mitral Valve MV E Max Vince. 110.00 (40-130 cm/s) MV A Velocity 85.00 (40-130 cm/s) E/A Ratio 1.30 MV Decel. Time 197.00 (160-240 ms) MV PHT 58.00 ms Pulmonary Valve PV Peak Velocity 101.00 (50-150 cm/s) Tricuspid Valve TR P. Velocity 253.00 cm/s RAP Estimate 10.00 mmHg RVSP 35.50 mmHg Left Ventricle Left atrium is mildly enlarged, left ventricle is normal size mild concentric left ventricular hypertrophy, estimated ejection fraction 55% with no regional wall motion abnormality, grade 2 diastolic dysfunction seen without tissue Doppler evidence of raise left atrial pressure. Right Ventricle Right atrium and right ventricular normal size and contractility. Aortic Valve Valve is minimally thickened and fibrosed there is no aortic stenosis or aortic insufficiency. Mitral Valve Mitral valve leaflets are minimally thickened, there is mild mitral regurgitation. Tricuspid Valve Tricuspid grossly normal, there is mild tricuspid regurgitation, tricuspid regurgitation jet velocity is inadequate for calculation of the right ventricular systolic pressure. Pulmonic Valve Pulmonic valve is poorly visualized. Great Vessels Aortic root is normal size. Inferior vena cava is poorly visualized. Pericardium No significant pericardial effusion noted. Conclusion 1. Mildly enlarged atrium, normal left ventricular size, mild concentric left ventricular hypertrophy Estimated ejection fraction 55% with no regional wall motion abnormality, grade 2 diastolic dysfunction seen without tissue Doppler evidence of raise left atrial pressure. 2. Mild mitral and tricuspid regurgitation. 3. No significant pericardial effusion noted. 4. Inferior vena cava is poorly visualized. Electronically signed by : Jones Boyle MD 05/07/2022 16:13:10
--- NOTE | 2022-05-07 11:29 | NM_ITS ---
APPROVED REPORT Exam: Nuclear Stress Test Indication: chest pain..fatigue Patient Location: Outpatient Stress Tech: Flory Garcia NE Tech:Monalisa Johansen ENRICOElsie RT(R)(N) Ht: 5 ft 1 in Wt: 150 lbs Bra Size: 36d HR: 57 bpm BP: 160/71 mmHg BSA: 1.67 m2 TID: 1.04 BMI: 28.3 History: chest pain..fatigue Procedure: Patient received 0.4 mg of intravenous Lexiscan, resting heart rate 57 bpm, resting blood pressure 160/71 mmHg, with Lexiscan maximum heart rate achieved was 90 bpm which is Less than 85 % of the maximum predicted heart rate and blood pressure was 160/71 mmHg. With Lexiscan, patient denied any complaint of chest pain. Electrocardiogram Resting electrocardiogram shows sinus rhythm, with Lexiscan patient developed rate dependent left bundle branch block. The EKG portion of the adenosine is nondiagnostic. Cardiac Stress and Resting SPECT Images: Cardiac Stress and Resting SPECT images were obtained using technetium 99m Myoview 32.8 mCi stress and 10.26 mCi at rest. Gated SPECT for analysis of segmental wall motion and calculation of the ejection fraction also done. Prone images were also obtained. Cardiac stress and rest SPECT may show mild fixed defect anteroseptally with normal contractility in the gated SPECT is likely secondary to soft tissue attenuation, no reversible ischemia seen, computer derived ejection fraction is over 65% with no regional wall motion abnormality, right ventricle is normal size and contractility. Conclusion: 1. The EKG portion of the Lexiscan is nondiagnostic. 2. No scintigraphic evidence of reversible ischemia seen, computer derived ejection fraction over 65% with no regional wall motion abnormality, right ventricle is normal size and contractility. 3. Likely normal Lexiscan Myoview study. Electronically signed by : Jones Boyle MD 05/07/2022 15:26:11
== END ==
PROVIDERS: PCP Nurse Practitioner Family; Visit Provider Nurse Practitioner Family
DX: I34.1 Nonrheumatic mitral (valve) prolapse; R06.02 Shortness of breath; I20.8 Other forms of angina pectoris
CPT/HCPCS: 78452; 93017; 93306; A9502; J2785

== ENCOUNTER 2023-02-17 12:27 | Day surgery (SDC) | payer MEDICARE, SELFPAY ==
[2023-02-08 12:25] VITALS: BMI 26.5
[2023-02-17 12:51] VITALS: BP 137/59; PULSE 60; RESP 18; TEMP 37.1; O2SAT 96
--- NOTE | 2023-02-17 13:03 | EXP.ANES.CKL ---
[facility] Disclaimer: The information contained in this section may have been updated after the patient was seen, as this information can be updated by other users. Medical History Abnormal EKG Angina pectoris GERD (gastroesophageal reflux disease) Hypertension Surgical History No significant past surgical history Family History Other Family history of hypertension Family history of myocardial infarction Social History Smoking Status: Never smoker second hand exposure: No alcohol intake: never substance use type: denies use current occupational status: retired Travel in the last 8 weeks: None household members: spouse housing: house current occupational exposures/hazards: No caffeine: Yes [facility] Anesthesia Checklist Patient Identification Patient Identification: Arm Band Structural Data Admitted From: Home Planned Operative Procedure/s: EGD Consent for Planned Operative Procedure(s) Verified: Yes NPO Status Verified Time NPO: 00:00 Additional verifications Anesthesia Reactions: No Hx Blood Transfusions: No Blood Transfusion Reaction: No Airway Assessment Mallampati Score:: Class II C-Spine Mobility Assessed: Yes TMJ Mobility Assessed: Yes Dentition: Partials Neurological Assessment Level of Consciousness: Awake Hx Seizures: No Numbness or tingling in extremities: No Anesthesia Plan Anesthesia Risk discussed: Yes Anesthesia Plan: Verified ASA Class: II Anesthesia Type: MAC
[2023-02-17 13:53] VITALS: O2SAT 96
[2023-02-17 14:17] VITALS: BP 111/56; PULSE 72; RESP 16; TEMP 36.3; O2SAT 93
--- NOTE | 2023-02-17 14:18 | HMH.SCOPE ---
Procedure: Date: 02/17/23 Patient Date of :: 1955 Procedure Performed:: EGd with laser ablation and bougie dilation Indications:: Dysphagia/GERD Performing Provider:: Catarino Mustafa MD Referring Provider:: Ambar Headley APRN Sedation:: Propofol Procedure:: The gastroscope was gently passed through the incisoral orifice into the oral cavity and under direct visualization the esophagus was intubated. The endoscope was passed down the esophagus, through the stomach, and into the duodenum. Color, texture, mucosa, and anatomy of the esophagus, stomach, and duodenum were carefully examined with the scope. Findings:: Oropharynx: normal Esophagus: normal, bougie dilation performed with 56F dilator EG Junction: intact at 40 cm Cardia: normal Fundus: normal Body: normal, angiodysplasia at upper body, treated with argon laser ablation therapy Antrum: normal Duodenal bulb: normal Duodenum (second and third portion): normal Impression: Symptomatic dysphagia treated with bougie dilation Angiodysplasia treated with argon laser therapy Recommendations:: Repeat EGD for dilation in about THREE years or so, sooner if clinically indicated. Complications:: None Estimated blood obtained (mL): 0 Colonoscopy Component Colonoscopy Component Was a colonoscopy performed during today's procedure?: No
[2023-02-17 14:27] VITALS: BP 110/62; PULSE 68; RESP 17; O2SAT 93
[2023-02-17 14:37] VITALS: BP 104/51; PULSE 65; RESP 16; O2SAT 94
[2023-02-17 14:47] VITALS: BP 118/73; PULSE 60; RESP 16; TEMP 36.6; O2SAT 95
== END 2023-02-17 15:05 | disposition home or self-care (01) ==
PROVIDERS: PCP Nurse Practitioner Family; Visit Provider Internal Medicine Gastroenterology
PROC: 0DJ08ZZ Inspection of Upper Intestinal Tract, Via Natural or Artificial Opening Endoscopic (ICD-10-PCS; CPT 43235; principal; 2023-02-17 13:30)
DX: K21.9 Gastro-esophageal reflux disease without esophagitis (principal); R13.10 Dysphagia, unspecified; K31.819 Angiodysplasia of stomach and duodenum without bleeding
CPT/HCPCS: 43270; 96570; C2618

== ENCOUNTER 2023-05-06 10:18 | Outpatient (CLI) | payer MEDICARE, SELFPAY ==
--- NOTE | 2023-05-06 10:23 | MM_ITS ---
PROCEDURE INFORMATION: Exam: MG Bilateral Screening 3D Mammography Exam date and time: 05/06/2023 10:24 AM Age: 67 years old Clinical indication: Screening. A maternal cousin had breast cancer. TECHNIQUE: Imaging protocol: Bilateral Screening tomosynthesis and 2D mammography including computer-aided detection (CAD) when performed. COMPARISON: 1. MG MM DIG SCREENING MAMM BI W/CAD 04/09/2022 8:26 AM 2. MG MM DIG MAMM BI DX W/CAD 01/28/2021 2:01 PM 3. MG MM DIG MAMM BI DX W/CAD 06/30/2020 1:57 PM 4. MG MM DIG MAMM DX UNILAT RT CAD 12/12/2019 11:11 AM FINDINGS: MAMMOGRAPHY: Breast composition: There are scattered areas of fibroglandular density. Mass: None. Architectural distortion: None. Calcifications: No suspicious calcifications. Asymmetric density: None. Skin thickening: None. Axillary adenopathy: None. IMPRESSION: No mammographic evidence of malignancy. Annual screening is recommended unless otherwise clinically indicated. ASSESSMENT: BI-RADS Category 1: Negative
== END 2023-05-06 23:59 ==
LOC: RAD 10:19
PROVIDERS: PCP Nurse Practitioner; Visit Provider Nurse Practitioner
DX: Z12.31 Encounter for screening mammogram for malignant neoplasm of breast (principal)
CPT/HCPCS: 77063; 77067

== ENCOUNTER 2023-09-13 09:30 | Outpatient (CLI) | payer MEDICARE, SELFPAY ==
[2023-09-13 09:57] LABS: Basophils # 0.1 K/mm3 (0-0.2); Basophils % 1.6 % (0.1-2.0); Eosinophils # 0.3 K/mm3 (0.0-0.4); Eosinophils % 4.2 % (0.1-12.0); Hematocrit 41.9 % (37.0-47.0); Hemoglobin 13.4 g/dL (12.2-16.2); Lymphocytes # 2.3 K/mm3 (0.7-4.5); Lymphocytes % 29.8 % (10-50); Mean Corpuscular HGB Conc 32.1 g/dL (31.8-35.4); Mean Corpuscular Hemoglobin 30.9 pg (27.0-31.2); Mean Corpuscular Volume 96.4 fl (81-99); Monocytes # 0.4 K/mm3 (0.1-1.0); Monocytes % 5.5 % (1.7-9.3); Neutrophils # 4.5 K/mm3 (1.8-7.8); Neutrophils % 58.9 % (37.0-80.0); Platelet Count 248 K/mm3 (142-424); Red Blood Count 4.34 M/mm3 (4.20-5.40); Red Cell Distribution Width 13.6 % (11.5-17.5); White Blood Count 7.7 K/mm3 (4.8-10.8)
[2023-09-13 10:56] LABS: Alanine Aminotransferase 15 U/L (12-78); Alkaline Phosphatase 60 U/L (38-126); Anion Gap 8.5 mEq/L (5-15); Aspartate Amino Transferase 32 U/L (14-36); Bilirubin,Direct 0.1 mg/dl (0.0-0.4); Bilirubin,Indirect 0.4 mg/dL (0.0-0.9); Bilirubin,Total 0.5 mg/dl (0.2-1.3); Bilirubin,Unconjugated 0.4 mg/dL (0.0-1.1); Blood Urea Nitrogen 11 mg/dl (7-17); Calcium 9.7 mg/dl (8.4-10.2); Carbon Dioxide 29 mmol/L (22.0-30.0); Chloride 104 mmol/L (98-107); Chol/HDL Ratio 2.5 (1-3.5); Cholesterol 156 mg/dl (140-200); Estimated Glomerular Filt Rate 71 ml/min (>60); GFR (African American) 86 ML/MIN (>60); Glucose 93 mg/dl (74-100); HDL Cholesterol 63 mg/dl (40-60); Magnesium 1.7 mg/dl (1.6-2.3); Potassium 4.5 mmoL/L (3.5-5.1); Sodium 137 mmol/L (136-145); Total Protein,Serum 6.5 g/dl (6.3-8.2); Triglycerides 147 mg/dl (30-150); VLDL Cholesterol 29 mg/dL (0-40)
[2023-09-13 11:07] LABS: Direct LDL Cholesterol 69.26 mg/dL (100-129)
[2023-09-13 11:12] LABS: Free T4 (Free Thyroxine) 1.46 ng/dl (0.78-2.19)
== END 2023-09-13 23:59 | disposition home or self-care (01) ==
PROVIDERS: PCP Nurse Practitioner; Visit Provider Physician Assistant
DX: R53.83 Other fatigue (principal); R06.00 Dyspnea, unspecified; I34.0 Nonrheumatic mitral (valve) insufficiency; I34.1 Nonrheumatic mitral (valve) prolapse; G47.33 Obstructive sleep apnea (adult) (pediatric); E78.2 Mixed hyperlipidemia; I11.9 Hypertensive heart disease without heart failure; I25.10 Atherosclerotic heart disease of native coronary artery without angina pectoris; R94.31 Abnormal electrocardiogram [ECG] [EKG]
CPT/HCPCS: 36415; 80048; 80061; 80076; 83735; 84439; 84443; 85025

== ENCOUNTER 2023-09-16 14:12 | Outpatient (CLI) | payer MEDICARE, SELFPAY ==
--- NOTE | 2023-09-16 14:12 | CA_ITS ---
APPROVED REPORT EXAM: Comprehensive 2D, Doppler, and color-flow Echocardiogram Separator Operator Shellfish Meats: LISA Miller, RVS Ht: 5 ft 4 in Wt: 150lbs BSA: 1.73 BP: 137/68 mmHg Indications: Dyaspnea, HTN, CAD, Abn EKG, MR, Smoker 2D Dimensions Left Atrium 3.33 cm LA Volume 56.70 mL LA Volume Index 32.00 mL/m2 (M/F) 16-34 M-Mode Dimensions RVDd 1.07 cm (0.9-2.6) LA Diam 3.66 cm (1.9-4.0) LVDd 5.04 cm (3.5-5.7) LVDs 3.04 cm (3.5-5.7) IVSd 0.75 cm (0.6-1.1) PWd 0.86 cm (0.6-1.1) EF (Teich) 70.00% EPSs 0.36 cm FS 39.70% EDV (Teich) 120.50 mL TAPSE 1.61 (<1.7) ESV (Teich) 36.20 mL LV Diastology E Decel Time 250 (160-240 msec) E/A Ratio 0.79 MED A' 12.70 cm/s LAT A' 11.90 cm/s Aortic Valve ANITA Index 1.21 cm2/m2 AoV Peak Vince. 171.0 (50-130 cm/s) AO Peak GR. 11.60 mmHg AO Mean GR. 5.70 (<5 mmHg) AO VTI 34.5 (18-25 cm) ANITA (VTI) 2.15 (2.5-4.5 cm2) Mitral Valve MV A Velocity 96.0 (40-130 cm/s) E/A Ratio 0.79 Tricuspid Valve TR P. Velocity 244.00 cm/s RAP Estimate 10.00 mmHg RVSP 33.80 mmHg Left Ventricle The left ventricle is normal size. The left ventricular systolic function is normal. The left ventricular ejection fraction is within the normal range. There is normal left ventricular wall thickness. There is normal LV segmental wall motion. The left ventricular diastolic function is normal. LVEF is 55%. Right Ventricle Right ventricle is mildly dilated. The right ventricular systolic function is normal. Atria Left atrium is mildly dilated. Right atrium is mildly dilated. The interatrial septum is not well-visualized. Aortic Valve The aortic valve is mildly thickened. There is no aortic valvular stenosis. Trace aortic regurgitation. Mitral Valve The mitral valve leaflets are mildly thickened. No evidence of mitral valve stenosis. Mild mitral regurgitation. Tricuspid Valve The tricuspid valve leaflets are thin and pliable. Mild tricuspid regurgitation. RVSP is 30-35 mmHg. Pulmonic Valve The pulmonary valve is normal in structure. Trace pulmonic regurgitation. Great Vessels The aortic root is normal in size. The ascending aorta is not well-visualized. IVC is normal in size and collapses >50% with inspiration. Pericardium There is no pericardial effusion. Other Information Study Quality: Fair Conclusion Normal biventricular systolic function. Mild RV dilation. Biatrial dilation. Mild MR, mild TR. Electronically signed by : Ekaterina Gardiner MD 09/21/2023 10:42:34
== END 2023-09-16 23:59 | disposition home or self-care (01) ==
LOC: RT 14:12
PROVIDERS: PCP Nurse Practitioner; Visit Provider Physician Assistant
DX: I34.0 Nonrheumatic mitral (valve) insufficiency (principal); I34.1 Nonrheumatic mitral (valve) prolapse; I11.9 Hypertensive heart disease without heart failure; I25.10 Atherosclerotic heart disease of native coronary artery without angina pectoris; G47.33 Obstructive sleep apnea (adult) (pediatric); E78.2 Mixed hyperlipidemia; R94.31 Abnormal electrocardiogram [ECG] [EKG]; R06.00 Dyspnea, unspecified; R53.83 Other fatigue
CPT/HCPCS: 93306

== ENCOUNTER 2023-11-25 08:00 | Outpatient (RCR) | payer MEDICARE, SELFPAY | END 2023-11-30 08:45 | disposition home or self-care (01) | LOC: PT 08:00 | PROVIDERS: Visit Provider Psychiatry & Neurology Neurology | DX: M54.50 Low back pain, unspecified (principal); G62.9 Polyneuropathy, unspecified; R26.89 Other abnormalities of gait and mobility | CPT/HCPCS: 97110; 97140; 97163 ==

== ENCOUNTER 2024-03-14 09:31 | Outpatient (CLI) | payer MEDICARE, SELFPAY ==
--- NOTE | 2024-03-14 09:35 | XR_ITS ---
FINAL REPORT CLINICAL HISTORY: Rt hip pain, nki FINDINGS: RIGHT HIP Two views of the right hip demonstrate no acute fracture or dislocation. There are mild degenerative changes of the right hip. Mild to moderate degenerative changes are seen of the lumbar spine. The visualized bony structures are well aligned. No soft tissue abnormality is seen. IMPRESSION: No acute bony abnormality. Reviewed, Interpreted and Dictated by Yann Quiroz III, MD Transcribed by Alka Caldera Authenticated and [facility]
== END 2024-03-14 23:59 | disposition home or self-care (01) ==
LOC: RAD 09:32
PROVIDERS: PCP Nurse Practitioner; Visit Provider Nurse Practitioner
DX: M25.551 Pain in right hip (principal)
CPT/HCPCS: 73502

== ENCOUNTER 2024-04-19 16:31 | Outpatient (CLI) | payer MEDICARE, SELFPAY ==
--- NOTE | 2024-04-19 16:49 | MR_ITS ---
PROCEDURE INFORMATION: Exam: MR Lumbar Spine Without Contrast Exam date and time: 04/19/2024 4:55 PM Age: 68 years old Clinical indication: Low back pain; Additional info: Lower back pain TECHNIQUE: Imaging protocol: Magnetic resonance imaging of the lumbar spine without contrast. COMPARISON: CR XR HIP RT 2-3V W/PELVIS 03/14/2024 9:36 AM FINDINGS: Bones/joints: Five non rib-bearing lumbar vertebral bodies assumed for this report. No acute fracture. Severe disc space narrowing at L1-L2 and L4-L5, with mixed Modic type 1 and type 2 degenerative endplate changes. Hqsa-kt-lhegqtfq disc space narrowing at L2-L3, with mild disc space narrowing at the remaining levels. Trace retrolisthesis L1 on L2. Trace anterolisthesis of L4 on L5. Spinal cord: Conus terminates normally at T12-L1. L1-L2: Trace retrolisthesis. Mild diffuse disc bulge. Mild central canal stenosis. Mild right lateral recess stenosis. Mild left and mrls-xk-myvgubse right foraminal stenosis. L2-L3: Mild diffuse disc bulge. Mild facet arthropathy. Mild central canal and lateral recess stenosis. Mild bilateral foraminal stenosis. L3-L4: Iqqe-jr-hubchsck diffuse disc bulge. Mild facet arthropathy. Wufp-uk-uvtdgyxj central canal stenosis. Moderate right and mild left lateral recess stenosis. Mild bilateral foraminal stenosis. L4-L5: Trace grade 1 degenerative anterolisthesis. Uncovering of the disc with mild diffuse disc bulge. Severe facet arthropathy. Bjwnofcw-tr-auinci central canal stenosis. Severe right and aylbrnwd-xa-rznins left lateral recess stenosis with probable impingement of both traversing L5 nerve roots. Ustn-sb-dwthfjuj left and tbphyfts-hi-ooiuxh right foraminal stenosis, with probable impingement of exiting right L4 nerve root. L5-S1: Mild diffuse disc bulge. Severe facet arthropathy. Mild stenosis of both lateral recesses. Mild bilateral foraminal stenosis, ihzwv-rpebofu-bhzg-left. Soft tissues: Visualized paravertebral soft tissues demonstrate no acute abnormality. IMPRESSION: 1. L1-L2: Trace retrolisthesis. Mild diffuse disc bulge. Mild central canal stenosis. Mild right lateral recess stenosis. Mild left and wcri-iq-cihcvauk right foraminal stenosis. 2. L2-L3: Mild diffuse disc bulge. Mild facet arthropathy. Mild central canal and lateral recess stenosis. Mild bilateral foraminal stenosis. 3. L3-L4: Fhhw-pf-drrxjhpj diffuse disc bulge. Mild facet arthropathy. Bjeo-sd-aqbmyfnp central canal stenosis. Moderate right and mild left lateral recess stenosis. Mild bilateral foraminal stenosis. 4. L4-L5: Trace grade 1 degenerative anterolisthesis. Uncovering of the disc with mild diffuse disc bulge. Severe facet arthropathy. Dkdmqtpx-jn-puceua central canal stenosis. Severe right and qeuflwsh-zt-uxapiv left lateral recess stenosis with probable impingement of both traversing L5 nerve roots. Yezw-el-cwglfqgf left and mmyexgjj-px-gnczci right foraminal stenosis, with probable impingement of exiting right L4 nerve root. 5. L5-S1: Mild diffuse disc bulge. Severe facet arthropathy. Mild stenosis of both lateral recesses. Mild bilateral foraminal stenosis, gyrsc-aucldes-dhtz-left.
[2024-04-19 17:54] LABS: 25-OH Vitamin D, Total 70.6 ng/mL (30-100)
[2024-04-25 03:36] LABS: Vitamin B6 21.8 ug/L (3.4-65.2)
== END 2024-04-19 23:59 | disposition home or self-care (01) ==
PROVIDERS: PCP Nurse Practitioner; Visit Provider Nurse Practitioner
DX: M54.50 Low back pain, unspecified (principal); E55.9 Vitamin D deficiency, unspecified; G62.9 Polyneuropathy, unspecified; E53.8 Deficiency of other specified B group vitamins
CPT/HCPCS: 36415; 72148; 82306; 84207

== ENCOUNTER 2024-05-02 10:37 | Outpatient (CLI) | payer MEDICARE, SELFPAY ==
[2024-05-02 12:33] LABS: Vitamin B12 > 1000 pg/mL (239-931)
== END 2024-05-02 23:59 | disposition home or self-care (01) ==
LOC: LAB 10:38
PROVIDERS: PCP Nurse Practitioner; Visit Provider Nurse Practitioner
DX: E55.9 Vitamin D deficiency, unspecified (principal); G62.9 Polyneuropathy, unspecified; E53.8 Deficiency of other specified B group vitamins; R53.83 Other fatigue
CPT/HCPCS: 82607; 82746

== ENCOUNTER 2024-05-14 08:53 | Outpatient (POV) | payer MEDICARE, SELFPAY ==
--- NOTE | 2024-05-14 09:10 | EXP.PAIN.OV ---
HPI Data of Consult Patient: new to practice Consult date: 05/14/24 Requesting Physician: Izabel Son APRN Primary Care Provider: Katherin Gómez APRN Consult Narrative Reason for consult: Low back pain, right upper thigh pain History of present illness: Ms. Ivy is a 68 year old female who presents today as a new patient. She is a referral from [place] [facility]. Today she rates her pain a 6 out of 10. Patient states her pain is all in her low back that does radiate down her upper right thigh and states this been going on for 3 years or longer. Patient denies any specific trauma or injury that initially started this pain. She states that it is an aching, stiff sensation with some numbness. She states that any type of increased activity or prolonged positioning causes worsening pain. She states that it is interfering with her ability perform activities of daily living. Patient states she has tried medications like ibuprofen, gabapentin, heat and ice and patches with minimal improvement. Patient states that for the most part it is constant but certain things do aggravate it to come and go. Patient has had physical therapy however it made no additional improvement on her symptoms. Patient has continued at home exercises and stretching since the physical therapy with minimal changes. Patient denies any injections or surgery history in the past. Her Mark has been reviewed and is appropriate. CC: Izabel Son APRN [facility] Disclaimer: The information contained in this section may have been updated after the patient was seen, as this information can be updated by other users. Medical History Angina pectoris Hypertension GERD (gastroesophageal reflux disease) Abnormal EKG Surgical History No significant past surgical history Family History Other Family history of hypertension Family history of myocardial infarction Social History Smoking Status: Never smoker second hand exposure: No alcohol intake: never substance use type: denies use current occupational status: retired Travel in the last 8 weeks: None household members: spouse housing: house current occupational exposures/hazards: No caffeine: Yes Review of Systems Review of Systems Review of systems:: pertinent systems reviewed and negative unless documented below Review of systems (narrative): Review of Systems: General: No recent weight changes, no fever, no sleep disturbances Respiratory: No cough, no shortness of air, no recurring pulmonary infections Cardiovascular/peripheral vascular: No chest pain, no palpitations, no edema, no shortness of breath Gastrointestinal: No new onset incontinence, normal bowel movements reported Genitourinary: No new onset incontinence Musculoskeletal: Low back pain, right upper thigh pain Psychiatric: [Normal mood/affect] Neurological: [Denies weakness in extremities], [denies balance issues] Meds Home Medications and Allergies Home Medications ?Medication ?Instructions ?Recorded ?Confirmed ?Type nabumetone 500 mg tablet 500 mg PO BID Pain 06/06/17 03/14/24 History cholecalciferol (vitamin D3) 125 5,000 unit PO DAILY Supplement 08/03/18 03/14/24 History mcg (5,000 unit) capsule cyanocobalamin (vitamin B-12) 1,000 mcg PO DAILY Supplement 08/03/18 03/14/24 History 1,000 mcg tablet (Vitamin B-12) omeprazole magnesium 20 mg 20 mg PO DAILY GERD 08/09/19 03/14/24 History tablet,delayed release (Prilosec OTC) gabapentin 300 mg capsule 300 mg PO DAILY Pain 08/19/20 03/14/24 History duloxetine 30 mg capsule,delayed 60 mg PO DAILY Pain 09/09/22 03/14/24 History release furosemide 20 mg tablet (Lasix) 20 mg PO DAILY PRN edema #30 tabs 09/13/23 03/14/24 Rx bisoprolol fumarate 5 mg tablet 5 mg PO DAILY #90 tabs 03/14/24 03/14/24 Rx ibandronate 150 mg tablet 150 mg PO ONCE 03/14/24 03/14/24 History rosuvastatin 20 mg tablet 20 mg PO DAILY Cholesterol #90 tabs 03/14/24 03/14/24 Rx New Prescriptions to Start Prescriptions: Allergies Allergy/AdvReac Type Severity Reaction Status Date / Time amoxicillin AdvReac Mild Blister Verified 03/14/24 08:53 Objective Narrative: Physical Exam: General: Alert and oriented x3, no acute distress, pleasant and cooperative Lungs: Respirations even and unlabored, symmetrical chest expansion Eyes: PERRL Musculoskeletal: Flexion and extension of lumbar [spine] somewhat guarded secondary to pain, [antalgic gait noted] point tenderness along bilateral SIs with positive bilateral Jesse's, Mirella's, Gaenslen's, compression and distraction exam Neurological: Speech clear, no gross sensory deficit Additional findings Additional findings: FINDINGS: Bones/joints: Five non rib-bearing lumbar vertebral bodies assumed for this report. No acute fracture. Severe disc space narrowing at L1-L2 and L4-L5, with mixed Modic type 1 and type 2 degenerative endplate changes. Zzxk-se-vwkklbpm disc space narrowing at L2-L3, with mild disc space narrowing at the remaining levels. Trace retrolisthesis L1 on L2. Trace anterolisthesis of L4 on L5. Spinal cord: Conus terminates normally at T12-L1. L1-L2: Trace retrolisthesis. Mild diffuse disc bulge. Mild central canal stenosis. Mild right lateral recess stenosis. Mild left and rjox-el-gqpklpsm right foraminal stenosis. L2-L3: Mild diffuse disc bulge. Mild facet arthropathy. Mild central canal and lateral recess stenosis. Mild bilateral foraminal stenosis. L3-L4: Yjhv-gs-byqkxbek diffuse disc bulge. Mild facet arthropathy. Otkq-mc-yglwbnmn central canal stenosis. Moderate right and mild left lateral recess stenosis. Mild bilateral foraminal stenosis. L4-L5: Trace grade 1 degenerative anterolisthesis. Uncovering of the disc with mild diffuse disc bulge. Severe facet arthropathy. Goczmxpv-mf-nxyqnu central canal stenosis. Severe right and njqnuoqp-cw-nfwqiw left lateral recess stenosis with probable impingement of both traversing L5 nerve roots. Hyxi-he-jyagwgal left and ymxzbtwr-bm-kluitb right foraminal stenosis, with probable impingement of exiting right L4 nerve root. L5-S1: Mild diffuse disc bulge. Severe facet arthropathy. Mild stenosis of both lateral recesses. Mild bilateral foraminal stenosis, eyfyj-tgeztsu-cxxm-left. Soft tissues: Visualized paravertebral soft tissues demonstrate no acute abnormality. IMPRESSION: 1. L1-L2: Trace retrolisthesis. Mild diffuse disc bulge. Mild central canal stenosis. Mild right lateral recess stenosis. Mild left and xdaz-dy-bbbemrtp right foraminal stenosis. 2. L2-L3: Mild diffuse disc bulge. Mild facet arthropathy. Mild central canal and lateral recess stenosis. Mild bilateral foraminal stenosis. 3. L3-L4: Lefq-cb-gxkcrtbv diffuse disc bulge. Mild facet arthropathy. Pmmh-ud-rgxwzgag central canal stenosis. Moderate right and mild left lateral recess stenosis. Mild bilateral foraminal stenosis. 4. L4-L5: Trace grade 1 degenerative anterolisthesis. Uncovering of the disc with mild diffuse disc bulge. Severe facet arthropathy. Cquacefq-nq-btmtos central canal stenosis. Severe right and hvmiunrn-bc-huxwbp left lateral recess stenosis with probable impingement of both traversing L5 nerve roots. Irmv-rx-znvqozfz left and etoogcrb-iu-xlyyzo right foraminal stenosis, with probable impingement of exiting right L4 nerve root. 5. L5-S1: Mild diffuse disc bulge. Severe facet arthropathy. Mild stenosis of both lateral recesses. Mild bilateral foraminal stenosis, pqcui-nwbwwwi-ivda-left. Assessment and Plan *Assessment and plan (1) Degenerative disc disease: Status: Acute Category: Medical (2) Spinal stenosis: Status: Acute Category: Medical Code(s): M48.00 - Spinal stenosis, site unspecified (3) Lumbar facet arthropathy: Status: Acute Category: Medical Code(s): M47.816 - Spondylosis without myelopathy or radiculopathy, lumbar region (4) Bilateral sacroiliitis: Status: Acute Category: Medical Code(s): M46.1 - Sacroiliitis, not elsewhere classified Plan Patient is experiencing worsening pain along the low back and bilateral hips. They did have limited range of motion of the lumbar spine along with point tenderness along bilateral SI joints and a positive bilateral Jesse's, Mirella's, Gaenslen's, compression and distraction exam. I did discuss with the patient that I do believe they would benefit from bilateral SI injections. Risk and benefits were discussed with the patient and they would like to proceed forward with this option. Patient has tried and failed conservative therapy including physical therapy and continued at home stretching exercise for longer than 12 weeks that was physician guided. Patient will be scheduled for bilateral SI injections under fluoroscopy. I will also order the patient a compounded cream. Patient has been instructed to contact the clinic with any concerns before the next appointment. Dr. Layton has reviewed this note and agrees with this plan of care. This note was dictated using voice recognition software and make contain errors or omissions. All injections are used with Lidocaine or Bupivacaine and Depo Medrol. Patient has been instructed to contact the clinic with any concerns before the next appointment. Dr. Layton has reviewed this note and agrees with this plan of care. This note was dictated using voice recognition software and make contain errors or omissions. All injections are used with Lidocaine, Bupivacaine and Depo Medrol. Occasionally urine drug screen is needed to verify patient's compliance with our office pain contract. This is ordered based off specific treatments related to chronic pain with the potential to abuse certain medications.
[2024-05-14 12:28] VITALS: BP 130/50; PULSE 68; RESP 18; O2SAT 95; BMI 25.0
== END 2024-05-14 23:59 | disposition home or self-care (01) ==
LOC: SC.PAIN 08:55
PROVIDERS: PCP Nurse Practitioner; Visit Provider Nurse Practitioner Family
DX: M48.00 Spinal stenosis, site unspecified (principal); M47.816 Spondylosis without myelopathy or radiculopathy, lumbar region; M46.1 Sacroiliitis, not elsewhere classified; Z73.89 Other problems related to life management difficulty
CPT/HCPCS: 99202; G0463

== ENCOUNTER 2024-05-29 13:58 | Day surgery (SDC) | payer MEDICARE, SELFPAY ==
[2024-05-29 14:07] VITALS: BP 128/59; PULSE 69; RESP 16; TEMP 36.5; O2SAT 97; BMI 26.0
[2024-05-29] MEDS: LIDOCAINE 1% 5ML PF VIAL 5 ML (14:33)
[2024-05-29] MEDS: methylPREDNISolone ACETATE 80MG/ML VIAL 80 MG (14:33)
[2024-05-29 14:34] VITALS: BP 167/73; PULSE 72; RESP 18; O2SAT 97
[2024-05-29] MEDS: BUPIVACAINE 0.25% 10ML INJ 25 MG IJ (14:34)
[2024-05-29 14:35] VITALS: BP 167/73; PULSE 68; RESP 18; O2SAT 98
[2024-05-29 14:38] VITALS: BP 163/64; PULSE 67; RESP 16; TEMP 36.6; O2SAT 96
--- NOTE | 2024-05-29 14:39 | P.PCN_ITS ---
Procedure Date: 05/29/24 Time: 14:30 Anesthesiologist:: Domingo Peralta CRNA Complications:: None Pre-procedure Diagnosis:: Bilateral sacroiliitis Post-procedure Diagnosis:: Same Indications for Procedure:: Patient is a very pleasant 69-year-old female who comes our clinic today for bilateral sacroiliac joint injections cortisone and local anesthetic. Patient describes low lumbar back pain off midline bilaterally. Bilateral posterior hip pain. Difficulty transitioning from sitting to standing. She rates her pain 7/10. Procedure Details:: Procedure: Bilateral sacroiliac joint injections under fluoroscopy Informed consent was obtained and the risks and benefits of the procedure were explained to the patient.~ The patient was taken to the procedure room and noninvasive monitors were placed including a noninvasive blood pressure cuff and pulse oximeter.~ The patient was placed prone on the procedure table. Both hips were cleansed using Betadine as a cleansing solution. C-arm fluoroscopy was used to view the right sacroiliac joint.~ The skin and subcutaneous tissues were anesthetized using lidocaine 1.5% and a 25-gauge needle.~ After this, a 22-gauge spinal needle was inserted under fluoroscopic guidance into the inferior aspect of the right sacroiliac joint.~ Omnipaque dye was injected and good spread was seen throughout the joint.~ After this, approximately 5 mL of bupivacaine, 0.25% and Depo-Medrol, 40 mg was incrementally injected into the right sacroiliac joint. We then moved to the left sacroiliac joint.~ The skin and subcutaneous tissues were anesthetized using lidocaine 1.5% and a 25-gauge needle.~ After this, a 22- gauge spinal needle was inserted under fluoroscopic guidance into the inferior aspect of the left sacroiliac joint.~ Omnipaque dye was injected and good spread was seen throughout the joint. After this, approximately 5 mL of bupivacaine, 0.25% and Depo-Medrol, 40 mg was incrementally injected into the left sacroiliac joint.~ The patient tolerated the procedure well with no complications. The patient was observed in the Pain Clinic and then was discharged home neurologically intact. Plan and Disposition:: Patient was discharged without incident.
== END 2024-05-29 14:38 | disposition home or self-care (01) ==
PROVIDERS: PCP Nurse Practitioner; Visit Provider Nurse Anesthetist, Certified Registered
DX: M46.1 Sacroiliitis, not elsewhere classified (principal)
CPT/HCPCS: 27096; G0260; J1010

== ENCOUNTER 2024-06-11 09:29 | Outpatient (POV) | payer MEDICARE, SELFPAY ==
[2024-06-11 10:03] VITALS: BP 116/62; PULSE 74; RESP 14; O2SAT 96; BMI 25.0
--- NOTE | 2024-06-11 10:14 | EXP.PAIN.SOA ---
[facility] Disclaimer: The information contained in this section may have been updated after the patient was seen, as this information can be updated by other users. Medical History Angina pectoris Hypertension GERD (gastroesophageal reflux disease) Abnormal EKG Surgical History No significant past surgical history Family History Other Family history of hypertension Family history of myocardial infarction Social History Smoking Status: Never smoker second hand exposure: No alcohol intake: never substance use type: denies use current occupational status: other Travel in the last 8 weeks: None household members: spouse housing: house current occupational exposures/hazards: No caffeine: Yes PM Subjective & Objective Subjective Subjective:: Patient is a pleasant 69-year-old female who presents today for follow-up of bilateral SI injections on 05/29/2024. Today she rates her pain a 3 out of 10. Patient states that she has had at least 75 to 80% improvement following this injection and feels like it still working well. Patient states that even the day of the injection it did seem like it took the severity out of her overall pain. She does state that she felt like it really did kick in the next day and has continued to make her movements easier. Patient is prescribed compounded cream and states that this helps additionally. She does make mention today that her was scheduled for an appointment with our office around lunchtime however that he has been recently hospitalized due to C. difficile and is still feeling not the best and would like to reschedule his appointment. Her Mark has been reviewed and is appropriate. Review of Systems: General: No recent weight changes, no fever, no sleep disturbances Respiratory: No cough, no shortness of air, no recurring pulmonary infections Cardiovascular/peripheral vascular: No chest pain, no palpitations, no edema, no shortness of breath Gastrointestinal: No new onset incontinence, normal bowel movements reported Genitourinary: No new onset incontinence Musculoskeletal: Low back pain Psychiatric: [Normal mood/affect] Neurological: [Denies weakness in extremities], [denies balance issues] Pain at rest (0-10 scale): 3 Objective Objective:: Physical Exam: General: Alert and oriented x3, no acute distress, pleasant and cooperative Lungs: Respirations even and unlabored, symmetrical chest expansion Eyes: PERRL Musculoskeletal: Flexion and extension of lumbar spine within normal limits Neurological: Speech clear, no gross sensory deficit Has patient had previous pain injection?: Yes Percent improvement in pain since last injection: 80% Conservative treatment options previously tried: Home exercise plan Length of treatment: Longer than 12 weeks Meds Home Medications and Allergies Home Medications ?Medication ?Instructions ?Recorded ?Confirmed ?Type nabumetone 500 mg tablet 500 mg PO BID Pain 06/06/17 06/11/24 History cholecalciferol (vitamin D3) 125 5,000 unit PO DAILY Supplement 08/03/18 06/11/24 History mcg (5,000 unit) capsule cyanocobalamin (vitamin B-12) 1,000 mcg PO DAILY Supplement 08/03/18 06/11/24 History 1,000 mcg tablet (Vitamin B-12) omeprazole magnesium 20 mg 20 mg PO DAILY GERD 08/09/19 06/11/24 History tablet,delayed release (Prilosec OTC) gabapentin 300 mg capsule 300 mg PO DAILY Pain 08/19/20 06/11/24 History duloxetine 30 mg capsule,delayed 60 mg PO DAILY Pain 09/09/22 06/11/24 History release furosemide 20 mg tablet (Lasix) 20 mg PO DAILY PRN edema #30 tabs 09/13/23 06/11/24 Rx bisoprolol fumarate 5 mg tablet 5 mg PO DAILY #90 tabs 03/14/24 06/11/24 Rx ibandronate 150 mg tablet 150 mg PO ONCE 03/14/24 06/11/24 History rosuvastatin 20 mg tablet 20 mg PO DAILY Cholesterol #90 tabs 03/14/24 06/11/24 Rx New Prescriptions to Start Prescriptions: Allergies Allergy/AdvReac Type Severity Reaction Status Date / Time amoxicillin AdvReac Mild Blister Verified 03/14/24 08:53 Assessment and Plan *Assessment and plan (1) Bilateral sacroiliitis: Status: Acute Category: Medical Code(s): M46.1 - Sacroiliitis, not elsewhere classified Plan Patient has had significant improvement following her bilateral SI injections and does not require any additional injection therapy at this time. Patient will return to clinic in 6 weeks. We did also give her rescheduled. Patient has been instructed to contact the clinic with any concerns before the next appointment. Dr. Layton has reviewed this note and agrees with this plan of care. This note was dictated using voice recognition software and make contain errors or omissions. All injections are used with Lidocaine, Bupivacaine and Depo Medrol. Occasionally urine drug screen is needed to verify patient's compliance with our office pain contract. This is ordered based off specific treatments related to chronic pain with the potential to abuse certain medications.
== END 2024-06-11 23:59 | disposition home or self-care (01) ==
LOC: SC.PAIN 09:31
PROVIDERS: PCP Nurse Practitioner; Visit Provider Nurse Practitioner Family
DX: M46.1 Sacroiliitis, not elsewhere classified (principal)
CPT/HCPCS: 99212; G0463

== ENCOUNTER 2024-11-29 17:37 | Outpatient (CLI) | payer MEDICARE, SELFPAY ==
--- OUTSIDE RECORDS SUMMARY | 2024-11-29 17:40 | XMS_ITS | Encounter Summary ---
Author Organization [facility] ([place], [place], [place], [place]) Address [address] [place] [address] Care Team Providers Care Sr. Director Name Role Phone Ambar Headley APRN Primary Care Provider Reason for Visit * Reason Comments Medication Refill Encounter Details Date Type Department Care Team (Late Contact Info) Description 11/04/2022 Refill [facility] - [place] [address] [place] [address] Shalonda Guillen MD [address] [place], [place] [id number] Polyneuropathy Social History Tobacco Use Types Packs/Day Years Used Date Smoking Tobacco: Never Smokeless Tobacco: Never Comments Unknown Sex and Gender Information Value Date Recorded Sex Assigned at Not on file Legal Sex Female 1:27 PM CDT Gender Identity Not on file Sexual Orientation Not on file documented as of this encounter Plan of Treatment Upcoming Encounters Date Type Department Care Team (Late st Contact Info) Description 03/12/2025 10:15 AM EST Office Visit [facility] [place] [address] [place] [address] Maddi Pringle APRN [address] [place], [place] [id number] documented as of this encounter Visit Diagnoses Diagnosis Polyneuropathy Unspecified hereditary and idiopathic peripheral neuropathy documented in this encounter Care Teams Sr. Director Relationship Specialty Start Date End Date Ambar Headley APRN [address] [address] PCP - General Nurse Practitioner 03/24/22 documented as of this encounter
--- OUTSIDE RECORDS SUMMARY | 2024-11-29 17:40 | XMS_ITS | Referral Summary ---
Author Organization [employer] ([place], [place], [place], [place]) Address [address] [place] [address] Care Team Providers Care Rebar Worker Name Role Phone Ambar Headley APRN Primary Care Provider [phone] Encounters Date Type Department Care Team Description 09/04/2024 10:00 AM EDT Office Visit [facility] Neurology - [address] [place] [address] Maddi Pringle APRN Polyneuropathy; Other fatigue; Avitaminosis D; Idiopathic polyneuropathy; Balance problems from Last 3 Months Allergies No known active allergies Medications aspirin 81 MG EC tablet Take 1 tablet (81 mg total) by mouth daily. Active cyanocobalamin (vitamin B-12) 1000 MCG tablet Take 1 tablet (1,000 mcg total) by mouth daily. Active nabumetone (RELAFEN) 500 MG tablet Take 1 tablet (500 mg total) by mouth 2 (two) times daily. Active omeprazole (PriLOSEC) 20 MG capsule Take 1 capsule (20 mg total) by mouth daily. Active rosuvastatin (CRESTOR) 20 MG tablet Take 1 tablet (20 mg total) by mouth daily. Active TiZANidine (ZANAFLEX) 4 MG capsule Take 1 capsule (4 mg total) by mouth nightly. Active cholecalciferol (D3-5000) 125 mcg (5,000 unit) capsule Take 1 capsule (5,000 Units total) by mouth daily. Active potassium chloride (KLOR-CON-M) 10 MEQ CR tablet TAKE 1 TABLET 1 TIME EACH DAY Active bisoprolol (ZEBETA) 5 MG tablet Take 1 tablet (5 mg total) by mouth daily. 4 Active ibandronate (BONIVA) 150 mg tablet Take 1 tablet (150 mg total) by mouth once a week. 5 Active gabapentin (NEURONTIN) 300 MG capsuleIndicati ons:Polyneuropa thy Take 2 capsules (600 mg total) by mouth nightly. Max Daily Amount: 600 mg 180 capsule 1 5 Active gabapentin (NEURONTIN) 100 MG capsuleIndicati ons:Polyneuropa thy 2 tabs in am and 1 tab at noon (in addition to Gabapentin 300-600mg at night). 270 capsule 1 5 Active DULoxetine (CYMBALTA) 60 MG capsuleIndicati ons:Polyneuropa thy,Other fatigue,Avitami nosis D,Idiopathic polyneuropathy, Balance problems Take 1 capsule (60 mg total) by mouth daily. 90 capsule 3 5 Active Active Problems Problem Noted Date Diagnosed Date Spinal stenosis of lumbar re gion, unspecified whether neurogenic claudication present 05/07/2024 Neuropathy 05/07/2024 Social History Tobacco Use Types Packs/Day Years Used Date Smoking Tobacco: Never Smokeless Tobacco: Never Tobacco Cessation:Counseling Given: No Alcohol Use Standard Drinks/Week Comments Never 0 (1 standard drink = 0.6 oz pur e alcohol) Family and Community Support Answer Daniel e Recorded Help with Day to Day Activities Not on file 04/15/2023 Feeling Lonely or Isolated Not on file 04/15 Educational Attainment Answer Date Ramírez rded Speak language other than Danish at home Not on file 04/15/2023 Want help with school or training Not on file 04/15/2023 Substance Use Answer Date Recorded Used prescription meds for non-medical reasons N ot on file 04/15/2023 Used illegal drugs past 12 months Not on file 04/15/2023 Comments Unknown Sex and Gender Information Value Date Recorded Sex Assigned at Not on file Legal Sex Female 1:27 PM CDT Gender Identity Not on file Sexual Orientation Not on file Last Filed Vital Signs Vital Sign Reading Time Taken Comments Blood Pressure 123/74 09/04/2024 10:18 AM EDT Pulse 70 09/04/2024 10:18 AM EDT Temperature - - Respiratory Rate - - Oxygen Saturation 94% 09/04/2024 10:18 AM EDT Inhaled Oxygen Concentration - - Weight 64.2 kg (141 lb 8 oz) 09/04/2024 10:18 AM EDT Height 152.4 cm (5') 09/04/2024 10:18 AM EDT Body Mass Index 27.63 09/04/2024 10:18 AM EDT Plan of Treatment Upcoming Encounters Date Type Department Care Team (Late st Contact Info) Description 03/12/2025 10:15 AM EST Office Visit [facility] - [facility] [address] [facility] [address] [place] [address] Maddi Pringle, STATION ATTENDANT [address] [facility] [address] [place], [place] [id number] Insurance [employer] MEDICARE PPO [place] [employer] MEDICARE PPO Care Teams Rebar Worker Relationship Specialty Start Date End Date Ambar Headley, STATION ATTENDANT [address] [address] PCP - General Nurse Practitioner 03/24/22
--- OUTSIDE RECORDS SUMMARY | 2024-11-29 17:40 | XMS_ITS | Clinical Summary ---
Author Organization [employer] ([place], [place], [place], [place]) Address [address] [place] [address] Care Team Providers Care Assistant Designer Name Role Phone Ambar Headley APRN Primary Care Provider Allergies No known active allergies Medications aspirin [...] TAKE 1 TABLET 1 TIME EACH DAY 4 Active bisoprolol (ZEBETA) 5 MG tablet Take [...] whether neurogenic claudication present 05/07/2024 Neuropathy 05/07/2024 Encounters Date Type Department Care Team Description 09/04/2024 10:00 AM EDT Office Visit [facility] Neurology [address] [facility] [address] [place] [address] Maddi Pringle APRN Polyneuropathy; Other fatigue; Avitaminosis D; Idiopathic polyneuropathy; Balance problems from Last 3 Months Family History Medical History Relation Name Comments No Known Problem Father No Known Problem Mother Relation Name Status Comments Father Mother Social History Tobacco Use Types Packs/Day Years [...] Date Ramírez rded Speak language other than Bahraini at home Not on file 04/15/2023 Want [...] Description 03/12/2025 10:15 AM EST Office Visit [facility] - [facility] [address] [facility] [address] [place] [address] Maddi Pringle, JEFF [address] [facility] [address] [place] [address] Health Maintenance Due Date Last Done Comments CT Colonography 1953 Colonoscopy 1953 Colorectal Cancer Screening 1953 DXA SCAN 1953 FOBT/FIT 1953 Fit-DNA (Cologuard) 1953 Sigmoidoscopy 1953 Depression Screening (12+) 1965 Hepatitis C Screening 1971 Breast Cancer Screening 1993 Shingles Vaccine (Zoster) (1 of 2) 2003 Pneumococcal 50+ years (2 of 2 - PCV) 01/06/201708/2015 Medicare Initial AWV [id number] 05/06/2019 DTAP/TDAP/TD VACCINES (2 - Td or Tdap) 12/07/2022 COVID-19 VACCINE ( - season) 2023 Influenza Vaccine (#1) 2024 02/18/2021 Tobacco Cessation Counseling and Screening (12+) 09/0409/04/2024 Respiratory Syncytial Virus (RSV) Adult or (1 - 1-dose 75+ series) 2028 Falls Risk Screening Completed 09/04/2024 Insurance [employer] MEDICARE PPO [employer] MEDICARE PPO Care Teams Assistant Designer Relationship Specialty Start Date End Date Ambar Headley APRN [address] [address] PCP - General Nurse Practitioner 03/24/22
--- NOTE | 2024-11-29 17:43 | XR_ITS ---
PROCEDURE INFORMATION: Exam: XR Right Knee Exam date and time: 11/29/2024 5:45 PM Age: 69 years old Clinical indication: Pain; Knee; Right; Additional info: Right knee pain TECHNIQUE: Imaging protocol: Radiologic exam of the right knee. Views: 3 views. COMPARISON: No relevant prior studies available. FINDINGS: Bones/joints: Large marginal osteophytes and severe degenerative changes involving the 3 compartments of the right knee. No evidence of acute osseous abnormality. Soft tissues: Normal. IMPRESSION: 1. Large marginal osteophytes and severe degenerative changes involving the 3 compartments of the right knee. 2. No evidence of acute osseous abnormality.
== END 2024-11-29 23:59 | disposition home or self-care (01) ==
LOC: RAD 17:38
PROVIDERS: PCP Nurse Practitioner; Visit Provider Nurse Practitioner
DX: M17.11 Unilateral primary osteoarthritis, right knee (principal); M25.761 Osteophyte, right knee
CPT/HCPCS: 73562

== ENCOUNTER 2024-12-18 12:42 | Outpatient (CLI) | payer MEDICARE, SELFPAY ==
--- NOTE | 2024-12-18 12:45 | MR_ITS ---
FINAL REPORT TECHNIQUE: Multiplanar MR of the right knee without contrast CLINICAL HISTORY: ARTHRITIS. LOCKING UP OF RIGHT KNEE. POSTERIOR KNEE PAIN. NO INJURY OR TRAUMA COMPARISON: none FINDINGS: Articular cartilage: Severe degenerative changes, greatest in the lateral compartment. Marrow signal: Minimal scattered subfoci of subchondral edema and sclerosis associated with arthritic disease. Joint fluid: Moderate joint effusion. Small Davis's cyst. Large joint body within the synovial recess along the medial fibular head measuring up to 15 mm. Menisci: Macerated tear involving the entire lateral meniscus. Small longitudinal tear posterior horn medial meniscus. Ligaments: Collateral, cruciate and patellofemoral ligaments intact Tendons: Quadriceps and patellar tendon normal Other: Multiloculated cystic change along the posterior lateral femoral condyle may represent ganglion cyst. Mild prepatellar bursitis. IMPRESSION: Severe degenerative changes as above with severely macerated tear lateral meniscus. Reviewed, Interpreted and Dictated by Kristen Kim MD Transcribed by Maribel Gonzalez Authenticated and [facility]
== END 2024-12-18 23:59 | disposition home or self-care (01) ==
LOC: RAD 12:43
PROVIDERS: PCP Nurse Practitioner; Visit Provider Nurse Practitioner
DX: M17.11 Unilateral primary osteoarthritis, right knee (principal); S83.281A Other tear of lateral meniscus, current injury, right knee, initial encounter
CPT/HCPCS: 73721

== ENCOUNTER 2024-12-27 15:59 | Outpatient (CLI) | payer MEDICARE, SELFPAY ==
--- NOTE | 2024-12-27 16:02 | MM_ITS ---
PROCEDURE INFORMATION: Exam: MG Bilateral Screening 3D Mammography Exam date and time: 12/27/2024 4:02 PM Age: 69 years old Clinical indication: Screening examination. Family history of breast carcinoma. TECHNIQUE: Imaging protocol: Bilateral Screening tomosynthesis and 2D mammography including computer-aided detection (CAD) when performed. COMPARISON: 1. MG MM DIG SCREENING MAMM BI W/CAD 05/06/2023 10:24 AM 2. MG MM DIG SCREENING MAMM BI W/CAD 04/09/2022 8:26 AM 3. MG MM DIG MAMM BI DX W/CAD 01/28/2021 2:01 PM 4. MG MM DIG MAMM BI DX W/CAD 06/30/2020 1:57 PM 5. MG DIGMAMMS MAMMOGRAM SCREEN-REPAIR ELECTRIC MOTOR ASSEMBLER N/C 11/06/2009 2:23 PM 6. MG DIGMAMMS MAMMOGRAM SCREEN-REPAIR ELECTRIC MOTOR ASSEMBLER N/C 08/09/2008 2:23 PM FINDINGS: MAMMOGRAPHY: Breast composition: There are scattered areas of fibroglandular density. Mass: No suspicious masses. Architectural distortion: No suspicious distortion. Calcifications: No suspicious calcifications. Asymmetric density: None. Skin thickening: None. Axillary adenopathy: None. IMPRESSION: 1. No mammographic evidence of malignancy. Annual screening is recommended unless otherwise clinically indicated. 2. Given the reported risk factors for this patient, a breast cancer risk assessment may prove useful for further evaluation. ASSESSMENT: BI-RADS Category 1: Negative.
== END 2024-12-27 23:59 | disposition home or self-care (01) ==
LOC: RAD 15:59
PROVIDERS: PCP Nurse Practitioner; Visit Provider Nurse Practitioner
DX: Z12.31 Encounter for screening mammogram for malignant neoplasm of breast (principal); R92.323 Mammographic fibroglandular density, bilateral breasts; Z80.3 Family history of malignant neoplasm of breast
CPT/HCPCS: 77063; 77067